=== PATIENT | female | born 1985 | race Caucasian/White ===

== ENCOUNTER 2016-10-08 00:18 | Observation (INO) | payer BC ==
[~2016-10-08] VITALS: Ht 170.2 cm; Wt 121.0 kg
[~2016-10-08 00:18] MED LIST: ACET-2321 PO; ACYC800T PO; BENZ100C97 PO; CIPR-280 PO; CODE118S2 PO; ETHI1TAB16; FLUT16SP EA NOSTRIL; IBUP-1547 PO; PRED50TA PO
--- OUTSIDE RECORDS SUMMARY | 2016-10-08 00:23 | XMS REPORT | Continuity of Care Document ---
Author Author [facility] Organization [facility] Address Unknown Phone Unavailable Care Team Providers Care Budget Counselor Name Role Phone JAMAICA PERSAUD APRN Primary Care Physician [phone] Insurance Providers Guarantor Lindsey Parr Address [address] [place] [address] [address] Email [email or web address] Other Policy Number [id number] Subscriber's Name Lindsey Parr Relationship 18 Self Group Number [id number] Effective Date 16 Expiration Date 16 Chief Complaint and Reason for Visit Chief Complaint Throat Pain/Injury Reason for Visit Upper respiratory infection with cough and congestion [id number] Pharyngitis Problems Active Problems Medical Problem Onset Date Status Group B Streptococcus carrier, delivered, current hospitalization Unknown Status post normal vaginal delivery Unknown Past Problems Medical Problem Onset Date Maxillary sinusitis, acute Unknown Pharyngitis Unknown UTI (urinary tract infection) Unknown Upper respiratory infection with cough and congestion Unknown Medications Current Home Medications Medication Dose Units Route Directions Days Qty Instructions Start Date Acetaminophen (Tylenol) 325 Mg Tablet 1 Tab Oral Every 4 Hours Prn 30 Tablet 08/13/16 Acyclovir 800 Mg Tablet 1 Tab Oral Daily 10/27/15 Benzonatate (Tessalon Perle) 100 Mg Capsule 100 Mg Oral Every 8 Hours for Cough 14 Days [address] Reji Campos Asset Protection Specialist [facility] [address] [facility] [phone] 09/04/16 Ciprofloxacin Hcl 500 Mg Tablet 500 Mg Oral Twice A Day 7 Days [address] Reji Campos Asset Protection Specialist [facility] [address] [place] [address] 09/04/16 Ethinyl Estradiol/Drospirenone (Gianvi 3 Mg-0.02 Mg Tablet) 1 Each Tablet 08/13/16 Fluticasone Propionate (Fluticasone Prop 50 Mcg/Actuation Nasal [place]) 120 [place]/16 G [place] 2 [place] Each Nostril Daily 21 Days [address] Reji Campos Asset Protection Specialist [facility] [address] [place] [address] 09/04/16 Ibuprofen 800 Mg Tablet 800 Mg Oral Every 8 Hours Prn for Pain 7 Days [address] Reji Campos Asset Protection Specialist [facility] [address] [place] [address] 09/04/16 Prednisone 50 Mg Tablet 50 Mg Oral Give With Breakfast 5 Days 5 Tablet Take 1 tablet, by mouth, once a day with breakfast. Supervising physician Dr. Reji Campos Asset Protection Specialist [facility] [address] [place] [address] 09/04/16 Promethazine Hcl/Codeine (Promethazine-Codeine Syrup) 118 Ml Syrup 5 Ml Oral Every Night Prn as needed for Cough 10 Days [address] Reji Campos Asset Protection Specialist [facility] [address] [place] [address] 09/04/16 Past Home Medications Medication Directions Ordered Status Ethinyl Estradiol/Drospirenone ([place] 28 Tablet) 1 Tab Tablet, 1 Tab Oral Daily 07/25/14 Discontinued Hydrocodone/Acetaminophen ([place] 5-325 Tablet) 1 Each Tablet, 1-2 Tab Oral Every 6 Hours as needed for Pain 07/25/14 Discontinued Hydrocodone/Acetaminophen ([place] 5-325 Tablet) 1 Each Tablet, 1-2 Tab Oral Every 4 Hours as needed for Pain 07/26/14 Discontinued Ondansetron Hcl (Zofran) 4 Mg Tablet, 4 Mg Oral Every 6 Hours for Nausea 08/07 Discontinued Social History Social History Problem Response Recorded Date/Time Onset Date Status Hx Substance Use No 11/18/2015 2:33am Not Applicable Not Applicable Hx Alcohol Use No 11/18/2015 1:43am Not Applicable Not Applicable Has the pt used tobacco in the last 12 months No 11/18/2015 2:33am Not Applicable Not Applicable Hospital Discharge Instructions No hospital discharge instructions. Plan of Care Discharge Date 09/04/16 10:54am Disposition 01 DISCHARGED HOME, SELF-CARE Condition at Discharge Stable Instructions/Education Provided Urinary Tract Infection in Women (DC) Pharyngitis (ED) Upper Respiratory Infection (ED) Forms Provided [employer] Work/School Permit Prescriptions See Medication Section Referrals JAMAICA PERSAUD APRN Address: [address] [place] [address] DELTA ESCOTO MD Address: [address] [place], [place] [phone] Additional Instructions/Education Take Cipro as directed. Use prednisone daily as directed. Use fluticasone nasal spray for 3 weeks. Use ibuprofen as needed. Take promethazine with codeine cough syrup at nighttime as needed. Use Tessalon Perles during daytime for cough as needed. Follow with primary care if symptoms are not improving. Functional Status No functional status results. Allergies, Adverse Reactions, Alerts Allergen Type Severity Reaction Status Last Updated Penicillin Allergy Unknown HIVES, ITCHING Active 09/04/16 Immunizations Query Response on File Recorded Date/Time Hx Influenza Vaccination Y 06/201407/25/14 10:16am Hx Pneumococcal Vaccination No 07/25/14 10:16am Hx Influenza Vaccination Y 06/201407/25/14 10:16am Influenza Vaccine Hx NO 09/04/16 10:15am Tetanus Diptheria Vaccine History UP TO DATE 09/04/16 10:15am Tdap Vaccine Hx Yes 10/27/15 8:28am Vital Signs Acute Vital Signs Vital Response Date/Time Temperature (Fahrenheit) 97.5 deg F (96.8 - 99.1) 09/04/2016 10:08am Temperature (Calculated Celsius) 36.96240 degrees C (36.0 - 37.3) 09/04/2016 10:08am Pulse Rate (adult) 87 bpm (60 - 100) 09/04/2016 10:08am Respiratory Rate 16 breaths/min (10 - 20) 09/04/2016 10:08am O2 Sat by Pulse Oximetry 94 % (90 - 100) 09/04/2016 10:08am Blood Pressure 128/78 mm Hg 09/04/2016 10:08am Height (Inches) 67.50 inches 09/04/2016 10:08am Weight (Kilograms) 119.300 kg 09/04/2016 10:08am Body Mass Index (BMI) 40.0 09/04/2016 10:08am Results Laboratory Results Test Name Result Units Flags Reference Collection Date/Time Result Date/ Time Comments Group A Streptococcus Screen NEGATIVE NEGATIVE 09/04/2016 10:30am 10:41am Urine Collection Type CLEANCATCH-MIDSTREAM 09/04/2016 10:30am 09/04 10:41am Urine Color YELLOW YELLOW 09/04/2016 10:30am 09/04/2016 10:41am Urine Turbidity SLT CLDY CLEAR 09/04/2016 10:30am 09/04/2016 10:41am Urine Specific [place] 1.010 L 1.015-1.025 09/04/2016 10:30am 2016 10:41am Urine pH 8.0 5.0-8.0 09/04/2016 10:30am 09/04/2016 10:41am Urine Leukocyte Esterase 2+ A NEGATIVE 09/04/2016 10:30am 09/04/2016 10:41am Urine Nitrite NEGATIVE NEGATIVE 09/04/2016 10:30am 09/04/2016 10: 41am Urine Protein NEGATIVE NEGATIVE 09/04/2016 10:30am 09/04/2016 10: 41am Urine Glucose (UA) NEGATIVE NEGATIVE 09/04/2016 10:30am 09/04/2016 10 :41am Urine Ketones NEGATIVE NEGATIVE 09/04/2016 10:30am 09/04/2016 10: 41am Urine Urobilinogen NORMAL EU/DL NORMAL 09/04/2016 10:30am 09/04/2016 10 :41am Urine Bilirubin 1+ A NEGATIVE 09/04/2016 10:30am 09/04/2016 10:41am Urine Blood 1+ A NEGATIVE 09/04/2016 10:30am 09/04/2016 10:41am Procedures No known history of procedures. Encounters Encounter Location Arrival/Admit Date Discharge/Depart Date Attending Provider Departed Emergency Room [facility] 09/04/16 10:01am 09/04/16 10: 54am CLAUDINE PHAN APRN Departed Emergency Room [facility] 08/13/16 10:00am 08/13/16 10: 38am MARY GOTTLIEB APRN Recent Diagnosis
--- NOTE | 2016-10-08 00:55 | NUR ---
LAB LAB IN TO DRAW.
--- NOTE | 2016-10-08 01:11 | NUR ---
PROVIDER DR JOAQUIN AT BEDSIDE AT THIS TIME.
[2016-10-08] MEDS ORDERED: NORMAL SALINE 1,000 ML IV ONE (01:15)
[2016-10-08] MEDS ORDERED: MORPHINE SULFATE 4 MG SYRINGE IV ONE (01:15)
[2016-10-08] MEDS ORDERED: ONDANSETRON 4mg/2ml INJECTION IV ONE ×2 (01:15→02:30)
[2016-10-08 01:19] LABS: BASOPHILS % (AUTO) 0.3 % (0-2); EOSINOPHILS % (AUTO) 0.1 % (0-4); HCT - HEMATOCRIT 40.1 % (36-46); IMMATURE GRANULOCYTE # (AUTO) 0.02 T/MM3 (0.00-0.03); IMMATURE GRANULOCYTE % (AUTO) 0.2 % (0.0-0.5); LYMPHOCYTES # (AUTO) 1.6 T/MM3 (1-4.8); LYMPHOCYTES % (AUTO) 16.6 % (23-45); MEAN CORPUSCULAR HGB 32.8 UUG (26-34); MEAN CORPUSCULAR HGB CONC(MCHC 34.9 GM/DL (31-37); MEAN CORPUSCULAR VOLUME 93.9 UM3 (80-100); MEAN PLATELET VOLUME 10.1 UM3 (9.4-12.4); MONOCYTES # (AUTO) 0.4 T/MM3 (0-0.8); MONOCYTES % (AUTO) 4.1 % (0-9.0); NEUTROPHILS #(AUTO)-ABSOLUTE 7.5 T/MM3 (1.8-7.7); NEUTROPHILS % (AUTO) 78.7 % (33-66); RED BLOOD COUNT 4.27 M/MM3 (4.00-5.20); WBC - WHITE BLOOD COUNT 9.6 T/MM3 (4.5-11.0)
[2016-10-08 01:24] LABS: ALBUMIN/GLOBULIN RATIO 1.1 RATIO (1.1-2.2); ALKALINE PHOSPHATASE 72 U/L (38-126); ALT (SGPT) 26 U/L (9-52); ANION GAP 16 MEQ/L (5-15); AST (SGOT) 19 U/L (14-36); BUN/CREATININE RATIO 23 RATIO (6-26); CALCIUM 9.1 MG/DL (8.4-10.2); CHLORIDE 101 MEQ/L (98-107); CO2 - CARBON DIOXIDE 20 MEQ/L (22-30); CREATININE 0.6 MG/DL (0.7-1.2); GLOMERULAR FILTRATION RATE 117; GLUCOSE 125 MG/DL (65-110); LIPASE 159 U/L (23-300); POTASSIUM 4.2 MEQ/L (3.6-5); SODIUM 137 MEQ/L (134-144); TOTAL PROTEIN 7.5 G/DL (6.3-8.2)
[2016-10-08 01:34] LABS: BLOOD, URINE NEGATIVE (NEGATIVE); COLOR,URINE YELLOW (YELLOW); LEUKOCYTE ESTERASE ,URINE NEGATIVE (NEGATIVE); NITRITE,URINE NEGATIVE (NEGATIVE); UROBILINOGEN,URINE 0.2 EU/DL (NORMAL)
--- NOTE | 2016-10-08 02:36 | NUR ---
RADIOLOGY PT LEAVES WITH IMAGING STAFF AT THIS TIME.
--- NOTE | 2016-10-08 02:51 | NUR ---
RETURN PT RETURNS AT THIS TIME.
--- NOTE | 2016-10-08 02:53 | NUR ---
BR PT AMBULATES TO BR AT THIS TIME.
--- NOTE | 2016-10-08 03:45 | NUR ---
PROVIDER DR JOAQUIN IN ROOM AT THIS TIME.
[2016-10-08] MEDS ORDERED: PROMETHAZINE 25 MG INJECTION IV PRN (04:00)
[2016-10-08] MEDS ORDERED: ONDANSETRON 4mg/2ml INJECTION IV PRN (04:00)
[2016-10-08] MEDS ORDERED: BISACODYL 10 MG SUPPOSITORY RECTALLY PRN (04:00)
[2016-10-08] MEDS ORDERED: MILK OF MAGNESIA 30 ML SUSP PO PRN (04:00)
[2016-10-08] MEDS ORDERED: MORPHINE SULFATE 2 MG SYRINGE IV PRN (04:00)
--- NOTE | 2016-10-08 04:00 | NUR ---
STATUS PT IS SLEEPING IN BED, NO S/S OF ACUTE DISTRESS NO CRYING OR VOMITTING NOTED.
--- NOTE | 2016-10-08 04:07 | HPPDOC ---
NATALIIA TOMLINSON MD 10/08/16 0406: HPI - Adult Date DATE: 10/08/16 TIME: 04:03 General Chief Complaint: abd pain Nausea and vomiting History of Present Illness 31-year-old female presents to the emergency room with intractable nausea vomiting diarrhea. She began having stomach cramps and diarrhea early in the afternoon, she had severe crampy abdominal pain across her entire abdomen associated with this. It's been constant but does wax and wane with her diarrhea symptoms. She's vomited several times nonbloody nonbilious emesis. Her nausea at this moment is quite severe. She's had some morphine Zofran and Phenergan and despite this remains significantly nauseated. Emergency room provider was concerned with the severity of her nauseous we did an EKG. It showed some anterior lateral T-wave inversion and no EKGs from the past to compare to. CT abdomen without contrast was performed that did not reveal any stones. She was on Cipro and prednisone 50 mg daily for a week about 3 weeks ago for "sinus and congestion symptoms" she denies a history of asthma she denies having anaphylaxis etc. She does have a significant surgical history of having her gallbladder out and having endometriosis surgery 2 years ago. Past Medical History Past Medical History History of endometriosis Surgical History Patient's Surgical History: exploratory laparotomy for endometriosis GB Current Medications Home Meds Active Scripts Ibuprofen (Ibuprofen) 800 Mg Tablet, 800 MG PO Q8HPRN for PAIN for 7 Days, #21 TAB [address] Reji Campos Senior Cobol Developer [facility] [address] [phone] Prov:CLAUDINE PHAN APRN 09/04/16 Fluticasone Propionate (Fluticasone Prop 50 mcg/actuation Nasal [place]) 120 [place] /16 G [place], 2 SPRAY EA NOSTRIL DAILY for 21 Days, #1 BOTTLE [address] Reji Campos Senior [employer]ol Developer [facility] [address] [phone] Prov:CLAUDINE PHAN APRN 09/04/16 Reported Medications Ethinyl Estradiol/Drospirenone (Gianvi 3 mg-0.02 mg Tablet) 1 Each Tablet 08/13/16 Acetaminophen (Tylenol) 325 Mg Tablet, 1 TAB PO Q4HPRN, #30 TAB 08/13/16 Acyclovir (Acyclovir) 800 Mg Tablet, 1 TAB PO DAILY, TAB 10/27/15 Allergies: Coded Allergies: Penicillins (Unverified Allergy, Unknown, HIVES, ITCHING, 10/08/16) Family History Family History: mom and dad are both living, Dad has diabetes mellitus type 1 Social History Smoking Status: Never smoker Does patient use chewing tobac: No Second Hand Exposure: No Substance Use Type: does not use, marijuana ( she states 1-2 tokes a week) Alcohol Intake: none Marital Status: Household Members: spouse, children ( she just had a baby 11 months ago) Review of Systems All Other Systems All Other Systems: Reviewed (remainder of 10-point ROS Neg.) Physical Exam General General Nourishment: obese, apparent age Vital Signs Vital Signs Date Time Temp Pulse Resp B/P Pulse Ox O2 Delivery O2 Flow Rate FiO2 10/08/16 01:26 24 Height (Feet): 5 Height (Inches): 67.50 Comments her affect and response to her symptoms is quite dramatic Respiratory Brief: FOUND: clear all christopher Cardiovascular (brief) Cardiac Brief: FOUND: regular rate, regular rhythm, NOT FOUND: pedal edema Abdomen (brief) Abdominal Brief: FOUND: BS normo active x4, soft, tender, NOT FOUND: distended Comments nursing exam demonstrates soft abdomen, does not appear that she has peritoneal signs though again her affect is quite dramatic as noted Neurologic RN Documented GCS Eye Opening: Verbal: Motor: Total: Psychiatric (brief) FOUND: alert Laboratory Laboratory Tests Test 10/08/16 01:03 10/08/16 01:09 White Blood Count 9.6T/MM3 Red Blood Count 4.27M/MM3 Hemoglobin 14.0GM/DL Hematocrit 40.1% Mean Corpuscular Volume 93.9UM3 Mean Corpuscular Hemoglobin 32.8UUG Mean Corpuscular Hemoglobin Concent 34.9GM/DL RDW Standard Deviation 43.6FL Platelet Count 307T/MM3 Mean Platelet Volume 10.1UM3 Immature Granulocyte % (Auto) 0.2% Neutrophils (%) (Auto) 78.7% Lymphocytes (%) (Auto) 16.6% Monocytes (%) (Auto) 4.1% Eosinophils (%) (Auto) 0.1% Basophils (%) (Auto) 0.3% Absolute Immature Granulocyte (auto 0.02T/MM3 Absolute Neutrophils (auto) 7.5T/MM3 Absolute Lymphocytes (auto) 1.6T/MM3 Absolute Monocytes (auto) 0.4T/MM3 Absolute Eosinophils (auto) 0.0T/MM3 Absolute Basophils (auto) 0.0T/MM3 Turbidity < 20 Sodium Level 137MEQ/L Potassium Level 4.2MEQ/L Chloride Level 101MEQ/L Carbon Dioxide Level 20MEQ/L Anion Gap 16MEQ/L Blood Urea Nitrogen 14.0MG/DL Creatinine 0.6MG/DL Glomerular Filtration Rate Calc 117 BUN/Creatinine Ratio 23RATIO Glucose Level 125MG/DL Calculated Osmolality 266MOSM/KG Calcium Level 9.1MG/DL Total Bilirubin 0.60MG/DL Icterus Index < 2 Aspartate Amino Transf (AST/SGOT) 19U/L Alanine Aminotransferase (ALT/SGPT) 26U/L Alkaline Phosphatase 72U/L Troponin I < 0.012ng/ml Total Protein 7.5G/DL Albumin 4.0G/DL Globulin 3.5G/DL Albumin/Globulin Ratio 1.1RATIO Lipase 159U/L Chemistry Specimen Hemolysis < 15 Urine Collection Type Cleancatch-midstream Urine Color Yellow Urine Turbidity Clear Urine pH 7.0 Urine Specific [place] 1.020 Urine Protein Trace Urine Glucose (UA) Negative Urine Ketones Trace Urine Blood Negative Urine Nitrite Negative Urine Bilirubin Negative Urine Urobilinogen 0.2EU/DL Urine Leukocyte Esterase Negative Urinalysis Comment Microscopic not ind. Urine Test Negative EKG low voltage noted, there are some inverted T waves in V2 through V5 no ST depression noted Radiology CT abdomen renal stone protocol reveals no kidney stones per discussion with emergency room physician Assessment & Plan Problems: (1) Diarrhea Status: Acute Qualifiers: Diarrhea type: presumed infectious Qualified Codes: A09 - Infectious gastroenteritis and colitis, unspecified Assessment & Plan: supportive care with antiemetics and pain medicine, with her surgical history hold off on ordering Imodium at this time but I will order a C. difficile that she was on Cipro a few weeks ago. (2) Nausea with vomiting Status: Acute Qualifiers: Vomiting Intractability: intractable Assessment & Plan: Anti-emetics as noted above supportive care and I think is in order with her relatively reassuring labs and imaging. it doesn't sound she smokes enough marijuana frequently enough to consider cannabis induced cyclic vomiting-type syndrome. (3) Abdominal pain Status: Acute Qualifiers: Abdominal location: generalized Qualified Codes: R10.84 - Generalized abdominal pain Assessment & Plan: again as noted her laboratories reassuring probably related to gastroenteritis, (4) Abnormal EKG Status: Acute Assessment & Plan: in or have any old EKGs to compare to, I think this is likely her baseline, but ruling out with serial enzymes as appropriate. We'll keep her nothing by mouth and no caffeine in case the daytime team thinks the stress test might be warranted, however with the significance of her other symptoms namely the nausea vomiting diarrhea this is more likely acute infectious gastroenteritis I would presume. Her CT scan without contrast didn' t demonstrate any obvious obstruction. She does have a significant surgical history so that is to keep in mind, Code Status Full Code Hospital Course Summary Disclaimer The hospital course summary below is not to be considered part of the above Progress Note. ESTELITA CERDA MD 10/08/16 1721: Past Medical History Current Medications Home Meds Active Scripts Ibuprofen (Ibuprofen) 800 Mg Tablet, 800 MG PO Q8HPRN for PAIN for 7 Days, #21 TAB [address] Reji Campos Senior Cobol Developer [facility] [address] [facility] [phone] Prov:CLAUDINE PHAN FINANCIAL ANALYSIS MANAGER 09/04/16 Fluticasone Propionate (Fluticasone Prop 50 mcg/actuation Nasal [place]) 120 [place] /16 G [place], 2 SPRAY EA NOSTRIL DAILY for 21 Days, #1 BOTTLE [address] Reji Campos Senior [employer]ol Developer [facility] [address] [facility] [phone] Prov:CLAUDINE PHAN FINANCIAL ANALYSIS MANAGER 09/04/16 Reported Medications Ethinyl Estradiol/Drospirenone (Gianvi 3 mg-0.02 mg Tablet) 1 Each Tablet 08/13/16 Acetaminophen (Tylenol) 325 Mg Tablet, 1 TAB PO Q4HPRN, #30 TAB 08/13/16 Acyclovir (Acyclovir) 800 Mg Tablet, 1 TAB PO DAILY, TAB 10/27/15 Allergies: Coded Allergies: Penicillins (Unverified Allergy, Unknown, HIVES, ITCHING, 4/18/17) Assessment & Plan Problems: (1) Nausea with vomiting Status: Acute Qualifiers: Vomiting Intractability: intractable Assessment & Plan: (2) Diarrhea Status: Acute Qualifiers: Diarrhea type: presumed infectious Qualified Codes: A09 - Infectious gastroenteritis and colitis, unspecified Assessment & Plan: (3) Abdominal pain Status: Acute Qualifiers: Abdominal location: generalized Qualified Codes: R10.84 - Generalized abdominal pain (4) Abnormal EKG Status: Acute (5) Morbid obesity Status: Chronic Qualifiers: Obesity type: due to excess calories Qualified Codes: E66.01 - Morbid ( severe) obesity due to excess calories Plan/Intensity of Service Have independently interviewed and examined pt. Chart reviewed. Reviewed above note and concur. CC: Ab pain, nausea and diarrhea. HPI: 31 y/o female presents to ED with above noted complaint. In typical state of health until afternoon of 10/07 when she developed diffuse ab pain and nausea. Multiple episodes of non bloody emesis. Stools also loose (does tend to have loose stools) - no blood in stool or black tarry stools. No f/c. No recent viral illness. [place] very full in chest in ED. No recent trauma. Does not use ETOH. Hx of cholecystomy. Has has similar pain in past, but never this intense or long lived. Report was to see GI for ab evaluation, but had to cancel secondary to job change. PHMx, FHx, Meds and Allergies reviewed and concur. SHx: September 09, 2016. ROS: GEN: Increased anxiousness with pain. HEENT: recent sinus congestion resolved. Vision/hearing stable. Remainder of 10 point ROS negative. Exam: GEN: [id number] A&O HEENT: NC/AT PRIMO EOMI Neck: midline, supple Lungs: clear bilaterally. No crackles, wheezes, distress CV: regular AB: Soft, Obese, ND. BS decreased. Point tender in RUQ at rib cage. No rash in this area EXT: Trace edema Neuro: CV II-XII intact. No focal deficits. Psych: awake alert appropriate SKIN: warm and dry, no rashes. Lab: reviewed Imagine: reviewed. Assessment: as above. Plan: OBS. IVF for hydration. Antiemetics as needed. IV pain medications. NPO until nausea resolves, then could advance diet. Tele. Serial enzymes. Recheck lab. This evening nausea much better. Very little appetite/desire to eat. Notes only point tenderness in ribcage of RUQ. Taking minimal sips of clear liquids. Hospital Course Summary Hospital Course Summary 10/08 OBS. IVF for hydration. Antiemetics as needed. IV pain medications. NPO until nausea resolves, then could advance diet. Tele. Serial enzymes. Recheck lab. NATALIIA TOMLINSON MD Oct 08, 2016 04:06 ESTELITA CERDA MD Oct 08, 2016 17:21 Assessment: as above. Plan: OBS. IVF for hydration. Antiemetics as needed. IV pain medications. NPO until nausea resolves, then could advance diet. Tele. Serial enzymes. Recheck lab. NATALIIA TOMLINSON MD Oct 08, 2016 04:06 ESTELITA CERDA MD Oct 08, 2016 17:21
--- NOTE | 2016-10-08 04:13 | NUR ---
REPORT GIVEN TO BRI FISHER AT THIS TIME.
--- NOTE | 2016-10-08 04:15 | ERPDOC ---
Departure Disposition Decision Date: Oct 08, 2016 Disposition Decision Time: 03:50 Disposition: 02 TO [facility] Impression Impression Impression: Primary Impression: Intractable nausea and vomiting Vomiting type: unspecified Qualified Codes: R11.2 - Nausea with vomiting, unspecified Additional Impression: Abnormal EKG Severity: Moderate Condition: Improved Seen By: Physician only Referrals: J[place]ICA PERSAUD APRN (PCP) DELTA ESCOTO MD (Family) Problems/Meds/Labs Reviewed?: Yes Medications reviewed and manag: Yes Follow up care ordered?: Yes Mental Status: Alert, Oriented HPI - General Medical General Chief Complaint: Abdominal Pain Stated Complaint: NAUSEA AND VOMITING, ABNORMAL EKG Time Seen by Provider: 00:46 Source: patient Exam Limitations: no limitations HPI - General Medical Initial Comments 31-year-old female presents to the emergency department with a chief complaint of nausea, vomiting, and diarrhea. Patient also notes right sided abdominal discomfort. She states the pain is located near the flank region. Patient denies any trauma, travel, poorly prepared foods or recent antibiotic use. Patient has had her gallbladder removed. Patient describes her pain as moderate. It is sharp. There is no radiation. Patient states that she has had "multiple episodes" of nonbloody nonbilious emesis and diarrhea. Patient denies any other complaints or associated symptoms. She does not note any exacerbating or remitting factors. She was at home when her symptoms began. Symptoms have been persistent in nature since onset. Symptoms have had a gradual progression. Occurred At: home Onset: Gradual Allergies: Coded Allergies: Penicillins (Unverified Allergy, Unknown, HIVES, ITCHING, 09/04/16) Past History Patient Surgical History GB Past Medical History Pt denies signifigant PMH Surgical History General: gallbladder Family History Family PMH: FOUND: diabetes Vaccines Hx Influenza Vaccination: Yes (06/2014) Hx Pneumococcal Vaccination: No Social History Smoking Status: Never smoker Does patient use chewing tobac: No Second Hand Exposure: No Substance Use Type: does not use Alcohol Intake: none Review of Systems Constitutional Constitutional: DENIES: chills, fever Eyes General: DENIES: erythema, exudate Lids/Accessories: DENIES: erythema, swelling Vision: DENIES: acuity, blurring ENMT Ears: DENIES: drainage, pain Hearing: DENIES: hearing loss Balance: DENIES: ataxia, falling to one side Sinuses: DENIES: congestion, pain Nose: DENIES: nosebleeds, pain Mouth/Throat: DENIES: painful swallowing, sore throat Teeth: DENIES: pain Jaw: DENIES: pain Cardiovascular Cardiac: DENIES: chest pain, dyspnea on exertion Rhythm/Rate: DENIES: irregular beat, palpitations Vascular: DENIES: pedal edema, unilateral swelling Pulmonary Respiratory: DENIES: cough, dyspnea, pleuritic chest pain, sputum GI Upper Abdomen: nausea, pain, vomiting Lower Abdomen: diarrhea, DENIES: pain General: DENIES: dysuria, frequency Musculoskeletal General: DENIES: joint pain, tenderness Integumentary Skin: DENIES: itching, rash Neurological General: DENIES: headache, numbness, weakness Psychiatric Psychiatric: DENIES: emotional instability, suicidal ideation/attempt Endocrine Endocrine: DENIES: polydipsia, polyphagia Hematologic/Lymphatic Hematologic/Lymphatic: DENIES: frequent nosebleeds, lymphadenopathy Allergic/Immunological Allergic/Immunoligical: DENIES: allergic reactions, hives Physical Exam General General Nourishment: well nourished, well developed, appears stated age, no acute distress, adult General Body Habitus: well groomed Vitals and Pain First Documented Vital Signs Date Time Temp Pulse Resp B/P Pulse Ox O2 Delivery O2 Flow Rate FiO2 10/08/16 01:00 83 98 Room Air 10/08/16 01:26 24 10/08/16 02:00 129/78 Weight: Kilograms: Height (feet): 5 Height (inches): 67.50 Triage Pain Scale: RN VS reviewed by Provider: Yes Normal Exams: Head: Normocephalic w/o trauma Eyes: Pupils are PERRLA w/ EOMI, No scleral icterus, irritation, or foreign bodies noted ENMT: No facial trauma, nasal exudates, pharyngeal erythema, or exudates are noted Dental: No fractured, loose, or missing teeth noted Neck: Full range of motion, without adenopathy, JVD, bruits or thyromegaly Chest/Resp: Clear all christopher, with good airflow, and symmetry bilaterally CV: Regular rate and rhythm, without murmur or gallop, Pulses 2+ all extremities, capillary refill, <2 seconds all ext., no pedal edema noted Abdomen: Bowel sounds positive, soft, non-tender, non-distended, no hepatosplenomegaly, masses or bruits noted Lymphatic: No lymphadenopathy, or lymphedema noted Musculoskeletal: No tenderness, or deformity noted, good range of motion, all extremities Integumentary: No rashes, hives, or bruising noted, hair and nails, without abnormality Neurologic: Patient is alert, and oriented, cranial nerves, motor/sensory/ cerebellar, exams w/o gross deficits, to observation Psychiatric: Patient exhibits, appropriate attention, emotion and affect Abdomen (brief) Comments NO CVAT. Differential Diagnoses Considering: Metabolic, UTI, Other (Renal Stone/Gastroenteritis) Progress Results/Orders Orders Procedure Category Date Status Time Cbc W/Auto LAB 10/08/16 Complete Diff-Reflex Manual Cmp - Comprehensive LAB 10/08/16 Complete Metabolic Lipase LAB 10/08/16 Complete Ua, Dip Wreflex LAB 10/08/16 Complete Microsc & Network Support Engineer 00:46 LAB 10/08/16 Complete Qualitative, Urine 00:46 Normal Saline (Normal PHA 10/08/16 Complete Saline Iv) 01:15 Morphine Sulfate PHA 10/08/16 Complete (Morphine) 01:15 Ondansetron Inj PHA 10/08/16 Complete (Zofran) 01:15 EKG EKG 10/08/16 Taken Ondansetron Inj PHA 10/08/16 Complete (Zofran) 02:30 Troponin I W LAB 10/08/[address] Renal W/O Contrast CT 10/08/16 Taken 01:14 Lab Results Laboratory Tests Test 10/08/16 01:03 10/08/16 01:09 White Blood Count 9.6T/MM3 Red Blood Count 4.27M/MM3 Hemoglobin 14.0GM/DL Hematocrit 40.1% Mean Corpuscular Volume 93.9UM3 Mean Corpuscular Hemoglobin 32.8UUG Mean Corpuscular Hemoglobin Concent 34.9GM/DL RDW Standard Deviation 43.6FL Platelet Count 307T/MM3 Mean Platelet Volume 10.1UM3 Immature Granulocyte % (Auto) 0.2% Neutrophils (%) (Auto) 78.7% Lymphocytes (%) (Auto) 16.6% Monocytes (%) (Auto) 4.1% Eosinophils (%) (Auto) 0.1% Basophils (%) (Auto) 0.3% Absolute Immature Granulocyte (auto 0.02T/MM3 Absolute Neutrophils (auto) 7.5T/MM3 Absolute Lymphocytes (auto) 1.6T/MM3 Absolute Monocytes (auto) 0.4T/MM3 Absolute Eosinophils (auto) 0.0T/MM3 Absolute Basophils (auto) 0.0T/MM3 Turbidity < 20 Sodium Level 137MEQ/L Potassium Level 4.2MEQ/L Chloride Level 101MEQ/L Carbon Dioxide Level 20MEQ/L Anion Gap 16MEQ/L Blood Urea Nitrogen 14.0MG/DL Creatinine 0.6MG/DL Glomerular Filtration Rate Calc 117 BUN/Creatinine Ratio 23RATIO Glucose Level 125MG/DL Calculated Osmolality 266MOSM/KG Calcium Level 9.1MG/DL Total Bilirubin 0.60MG/DL Icterus Index < 2 Aspartate Amino Transf (AST/SGOT) 19U/L Alanine Aminotransferase (ALT/SGPT) 26U/L Alkaline Phosphatase 72U/L Troponin I < 0.012ng/ml Total Protein 7.5G/DL Albumin 4.0G/DL Globulin 3.5G/DL Albumin/Globulin Ratio 1.1RATIO Lipase 159U/L Chemistry Specimen Hemolysis < 15 Urine Collection Type Cleancatch-midstream Urine Color Yellow Urine Turbidity Clear Urine pH 7.0 Urine Specific Norden 1.020 Urine Protein Trace Urine Glucose (UA) Negative Urine Ketones Trace Urine Blood Negative Urine Nitrite Negative Urine Bilirubin Negative Urine Urobilinogen 0.2EU/DL Urine Leukocyte Esterase Negative Urinalysis Comment Microscopic not ind. Urine Test Negative Medications Current ED Medications Sodium Chloride (Normal Saline IV) 1,000 ml @ 999 mls/hr Q1H1M ONCE IV Last administered on 10/08/16 01:25; Start 10/08/16 at 01:15; Stop 10/08/16 at 02:15 ; Status DC Morphine Sulfate (Morphine) 4 mg O ONCE IV Last administered on 10/08/16 01: 26; Start 10/08/16 at 01:15; Stop 10/08/16 at 01:16; Status DC Ondansetron HCl (Zofran) 4 mg O ONCE IV Last administered on 10/08/16 01:25; Start 10/08/16 at 01:15; Stop 10/08/16 at 01:16; Status DC Ondansetron HCl (Zofran) 4 mg O ONCE IV Last administered on 10/08/16 02:23; Start 10/08/16 at 02:30; Stop 10/08/16 at 02:31; Status DC Progress Progress Labs / imaging were discussed in detail with the patient and family and questions are answered. Patient is given IV hydration. She is given parental narcotic and antiemetic medications intravenously with improvement of symptoms. Patient CT scan of the abdomen and pelvis is unremarkable. Patient does have T-wave changes in V2, V3, and V4 on her EKG. Patient will be admitted to the service of the hospitalist for observation status secondary to this. I have no EKG for comparison. Patient is in agreement with the current plan of management. She is admitted to the hospital in improved condition. Patient is admitted to the service of Dr. Graham after discussion with Dr. Montiel. No further orders from accepting or consulting physicians. Temp: 37.0 C. EKG EKG : Rate: 60-100 Rhythm: sinus Warbranch: normal QRS: normal Intervals: normal ST/T: inverted (V2-V4. No comparison ekg. ) Interpreted by: signing physician CT CT : CT: Abd/Pelvis no contrast Interpretation: Normal, Faxed Report PA JOAQUIN DO Oct 08, 2016 04:15
--- NOTE | 2016-10-08 04:40 | NUR ---
TRANSPORT PT IS TRANSPORTED VIA CART TO MEDICAL UNIT ROOM 153 AT THIS TIME. PT HAS ONE EPISODE OF LOUD WRETCHING WHICH PRODUCES 50-100 ML OF EMESIS. BRI FISHER PRESENT ON ARRIVAL, CARE IS PASSED.
[2016-10-08] MEDS: NORMAL SALINE 1,000 ML IV SCH ×2 (05:09→15:06)
[2016-10-08 05:40] VITALS: Ht 170.2 cm; Wt 121.0 kg
[2016-10-08] MEDS ORDERED: LORAZEPAM 2 MG/ML INJECTION IV PRN (05:45)
[2016-10-08 06:05] VITALS: BP 151/100; PULSE 71; RESP 16; TEMP 97.7; O2SAT 100
--- NOTE | 2016-10-08 06:21 | NUR ---
Admit Admit to room 153 @0440, c/o severe nausea and abdominal pain. Emesis x1, small amount. Pt resting after ativan was given per order. Educated offset second press operator light, room, and c-diff precautions. Resting with HOB up, alarms in place.
[2016-10-08 07:28] VITALS: BP 141/93; PULSE 72; RESP 16; TEMP 98.9; O2SAT 98
--- NOTE | 2016-10-08 08:03 | DI ---
Indication: ITS.REASON: R flank pain PROCEDURE: CT RENAL W/O CONTRAST: Encounter: Initial Comparison: None Technique: Axial CT images were performed through the abdomen and pelvis without intravenous contrast. Coronal and sagittal two-dimensional reformats. Automated Exposure Control and Iterative Reconstruction dose reducing techniques were utilized. Findings: The lung bases are clear. The unenhanced liver is unremarkable. Gallbladder is surgically absent. The spleen, pancreas and adrenal glands are within normal limits. The kidneys appear normal. No renal or ureteral stones. Bladder is normal. Uterus and ovaries are normal. No free fluid. No evidence of a bowel obstruction. The appendix is normal. Bone windows show no acute findings. Impression: No acute disease process seen. There is a preliminary report by [email or web address]. .
[2016-10-08 08:10] VITALS: PULSE 60; RESP 16
[2016-10-08] MEDS: SENNA + DOCUSATE TAB PO SCH ×2 (08:34→20:09)
[2016-10-08] MEDS: METOCLOPRAMIDE 10mg/2ml INJECTION IV PRN ×2 (08:47→20:09)
--- NOTE | 2016-10-08 09:17 | NUR ---
CM IN TO VISIT PATIENT, SHE IS SLEEPING. MALE IN ROOM SLEEPING, WOKE UP AND DENIED DISCHARGE NEEDS. CM CONTACT INFORMATION LEFT, EXPLAINED IF PATIENT NEEDS SERVICES TO CALL. Addendum: 10/08/16 at 0918 by LEIGH ANN ORTEGA RN Amended: Links added.
--- NOTE | 2016-10-08 09:20 | NUR ---
CM LACE SCORE IS 2, NO FURTHER FOLLOW UP IS NEEDED.
[2016-10-08 12:04] VITALS: BP 152/99; PULSE 78; RESP 18; TEMP 98; O2SAT 96
[2016-10-08] MEDS ORDERED: ACETAMINOPHEN 325 MG TABLET PO PRN (14:00)
[2016-10-08 15:03] VITALS: BP 121/70; PULSE 74; RESP 18; TEMP 98.6; O2SAT 96
--- NOTE | 2016-10-08 17:49 | NUR ---
STATUS pt is alert and oriented X3. pt has had some pain and was given prn pain meds as charted. pt gets up ad snehal. pt is on room air. is present. pt is resting in bed. call light within reach.
[2016-10-08 20:00] VITALS: BP 138/97; PULSE 74; RESP 16; RESP 20; TEMP 97.6; O2SAT 96
--- NOTE | 2016-10-08 21:00 | NUR ---
shower Pt had shower with assist from family. Back in bed and resting now.
[2016-10-09] MEDS: NORMAL SALINE 1,000 ML IV SCH (03:11)
[2016-10-09 03:15] VITALS: BP 135/83; PULSE 72; RESP 16; O2SAT 99
[2016-10-09 06:09] LABS: BASOPHILS % (AUTO) 0.6 % (0-2); EOSINOPHILS % (AUTO) 0.5 % (0-4); HCT - HEMATOCRIT 37.7 % (36-46); HGB - HEMOGLOBIN 12.9 GM/DL (12-16); IMMATURE GRANULOCYTE # (AUTO) 0.01 T/MM3 (0.00-0.03); IMMATURE GRANULOCYTE % (AUTO) 0.2 % (0.0-0.5); LYMPHOCYTES % (AUTO) 46.2 % (23-45); MEAN CORPUSCULAR HGB 32.6 UUG (26-34); MEAN CORPUSCULAR HGB CONC(MCHC 34.2 GM/DL (31-37); MEAN CORPUSCULAR VOLUME 95.2 UM3 (80-100); MEAN PLATELET VOLUME 10.1 UM3 (9.4-12.4); MONOCYTES # (AUTO) 0.9 T/MM3 (0-0.8); NEUTROPHILS #(AUTO)-ABSOLUTE 2.6 T/MM3 (1.8-7.7); NEUTROPHILS % (AUTO) 39.5 % (33-66); RED BLOOD COUNT 3.96 M/MM3 (4.00-5.20); WBC - WHITE BLOOD COUNT 6.5 T/MM3 (4.5-11.0)
[2016-10-09 06:22] LABS: ANION GAP 10 MEQ/L (5-15); BUN/CREATININE RATIO 17 RATIO (6-26); CHLORIDE 110 MEQ/L (98-107); CO2 - CARBON DIOXIDE 24 MEQ/L (22-30); CREATININE 0.6 MG/DL (0.7-1.2); GLOMERULAR FILTRATION RATE 117; GLUCOSE 85 MG/DL (65-110); POTASSIUM 3.5 MEQ/L (3.6-5); SODIUM 144 MEQ/L (134-144)
--- NOTE | 2016-10-09 06:52 | NUR ---
Status Slept all night, no c/o N/V or pain. No stool for c-diff sample this shift.
[2016-10-09 08:10] VITALS: PULSE 76; RESP 16
[2016-10-09] MEDS: SENNA + DOCUSATE TAB PO SCH (08:10)
[2016-10-09 08:12] VITALS: BP 125/82; PULSE 76; RESP 18; TEMP 97.1; O2SAT 95
--- NOTE | 2016-10-09 09:31 | PNPDOC ---
Subjective Date DATE: 10/09/16 TIME: 09:25 Subjective F/U: N/V/D, ab pain Doing better today. Some nausea last night. Slept better. Ab pain resolved- notes discomfort to RUQ with movements/palpation. NO stools. Urinating well. Breathing well. No chest pain. No f/c. Objective Vital Signs Vital signs Vital Signs Date Time Temp Pulse Resp B/P Pulse Ox O2 Delivery O2 Flow Rate FiO2 10/09/16 08:12 97.1 76 18 125/82 95 Room Air Height (Feet): 5 Height (Inches): 7.00 Weight (Kilograms): 121.000 General General Appearance: Alert, Obese, Orientated x 3, Well Nourished, Well Developed, Cooperative, Looks Stated Age Eyes (Brief) Eyes: FOUND: EOMI, PERRL, NOT FOUND: scleral icterus ENMT (Brief) ENMT: FOUND: hearing intact, mucosa moist Neck (Brief) Neck: FOUND: midline, NOT FOUND: nuchal rigidity, spasm Respiratory (Brief) Respiratory: FOUND: clear all christopher, equal bilaterally, NOT FOUND: rales, wheezes Cardiovascular (Brief) Cardiac: FOUND: regular rate, regular rhythm, NOT FOUND: pedal edema Abdomen (Brief) Abdominal: FOUND: BS normo active x4, soft, NOT FOUND: distended Extremities (Brief) Extremity : Side: Bilateral Extremity: leg Extremity Finding: NOT FOUND: edema, warm Musculoskeletal (Brief) Musculoskeletal: FOUND: extremities move equally, NOT FOUND: deformity, loss of motion, spasm, tenderness Integumentary (Brief) Integumentary: FOUND: dry, warm, NOT FOUND: rash Neurologic (Brief) Neurological: FOUND: cranial 2-12 intact, motor (Intact ) Psychiatric (Brief) Psychiatric: FOUND: alert, attentive, normal affect, oriented Laboratory Laboratory Laboratory Tests 10/08/16 01:03 10/09/16 05:43 Laboratory Tests 10/08/16 01:03 10/09/16 05:43 Assessment & Plan Problems: (1) Nausea with vomiting Status: Resolved Qualifiers: Vomiting Intractability: intractable Assessment & Plan: (2) Diarrhea Status: Resolved Qualifiers: Diarrhea type: presumed infectious Qualified Codes: A09 - Infectious gastroenteritis and colitis, unspecified Assessment & Plan: (3) Abdominal pain Status: Resolved Qualifiers: Abdominal location: generalized Qualified Codes: R10.84 - Generalized abdominal pain (4) Abnormal EKG Status: Acute (5) Morbid obesity Status: Chronic Qualifiers: Obesity type: due to excess calories Qualified Codes: E66.01 - Morbid ( severe) obesity due to excess calories Plan/Intensity of Service Advance diet as tolerated-advised caution with oral intake. Encourage ambulation. Will give 20mEq KCl with lunch. Discussed symptoms with pt - do feel outpatient GI evaluation would be prudent. Anticipate discharge to home this afternoon. Code Status Full Code Hospital Course Summary Disclaimer The hospital course summary below is not to be considered part of the above Progress Note. Hospital Course Summary 10/08 OBS. IVF for hydration. Antiemetics as needed. IV pain medications. NPO until nausea resolves, then could advance diet. Tele. Serial enzymes. Recheck lab. This evening nausea much better. Very little appetite/desire to eat. Notes only point tenderness in ribcage of RUQ. Taking minimal sips of clear liquids. 10/09 Doing better today. Some nausea last night. Slept better. Ab pain resolved- notes discomfort to RUQ with movements/palpation. NO stools. Urinating well. Breathing well. No chest pain. No f/c. Stool studies not done as pt has not produced stool. Advance diet as tolerated-advised caution with oral intake. Encourage ambulation. Will give 20mEq KCl with lunch. Discussed symptoms with pt - do feel outpatient GI evaluation would be prudent. Anticipate discharge to home this afternoon. ESTELITA CERDA MD Oct 09, 2016 09:30
[2016-10-09 12:28] VITALS: BP 130/91; PULSE 64; RESP 18; TEMP 96.8; O2SAT 98
[2016-10-09] MEDS ORDERED: POTASSIUM CHLORIDE 20 MEQ TABLET PO ONE (12:30)
[2016-10-09] MEDS ORDERED: PROM12.510 PO (13:48)
--- NOTE | 2016-10-09 15:11 | NUR ---
CM CM IN TO VISIT WITH PT. CM EXPLAINED ROLE. CM PROVIDED CONTACT INFORMATION. PT DENIES HOME NEEDS AND IS AWARE TO CALL SHOULD NEEDS ARISE.
--- NOTE | 2016-10-09 15:33 | NUR ---
DISMISSAL pt has been dismissed to home. all dismissal paperwork has been reviewed with the pt and a copy was sent home. prescription was sent with the pt. all personal belongings were sent with the pt. IV was DC'd. pt left with her .
[2016-10-09] MEDS ORDERED: ONDA4TAB7 PO (22:20)
--- NOTE | 2016-10-10 14:44 | DSF ---
Date of the initiation of observation 10/08/2016. Date of discharge 10/09/2016. ADMISSION DIAGNOSIS Nausea and vomiting. DISCHARGE DIAGNOSIS Nausea, vomiting - resolved. ASSOCIATED CONDITIONS AND COMPLICATIONS Diarrhea - resolved. Abdominal pain - improved. Abnormal EKG. Morbid obesity with BMI 41.8. PROCEDURES None. CONSULTS None. CLINICAL RESUME Lindsey Alejandra is a 31-year-old female who presents to [facility] Emergency Room secondary abdominal pain, nausea, vomiting. She start having abdominal cramps and diarrhea early in the afternoon of the . She developed severe crampy pain across her entire abdomen associated with this. Pain is constant but does wax and wane with her diarrhea symptoms. She has vomited several times, nonbloody and nonbilious emesis. Her nausea gets quite severe. With her symptoms worsening, she presented to emergency room for evaluation. Despite Zofran and Phenergan, she still had significant nausea. She has history of cholecystectomy out many, many years ago and also endometriosis surgery two years ago. She was exposed to Cipro and prednisone about three weeks ago for sinus symptoms. In emergency room she was evaluated. White count is normal at 9.6. Electrolytes are unremarkable other than CO2 slightly decreased at 20 and anion gap elevated at 16. Troponin was undetectable. UA showed trace protein, trace ketone. She underwent renal CT which showed no acute disease process. In light of her persistent nausea , vomiting, abdominal pain, hospitalist service was contacted and patient was subsequently placed in outpatient observation status at [facility] for further evaluation and treatment. For complete details of the H&P, refer to that document. LABORATORY White blood count is 9.6 with hemoglobin 14.0, hematocrit 40.1, MCV 93.9 and platelets 307,000. 78.7% neutrophils are noted. Serum sodium is 137, potassium 4.2, chloride 101, CO2 20, BUN 14, creatinine 0.6, GFR 117 and blood glucose 125. Transaminases unremarkable. Troponin I is less than 0.012. Lipase is 159. UA reveals trace protein, trace glucose. Stool for fecal leukocytes is negative. Stool PCR panel is completely unremarkable. HOSPITAL COURSE The patient was placed in outpatient observation status at [facility] under the care of the hospitalist service. She was initially made n.p.o. for bowel rest. IV fluids were initiated for hydration. We had Zofran, Phenergan and Reglan available as needed to help with nausea. Morphine was made available as needed for pain, but she did not require morphine for pain control after she left the emergency room. We did make Tylenol available as needed. Ativan was made available as needed for anxiety. Lab was monitored. Overall on day of presentation she spent most of the day sleeping (presented to emergency room early in morning of the 18th and very, very tired throughout the day). Fortunately, her nausea and abdominal pain were defervescing. We did advance diet to clear liquids, advising patient on caution with oral intake. She was no longer having diarrhea. IV fluids were continued. The next day met with continued success. The patient was able to tolerate liquids without abnormality. White count was still normal. Pain was defervescing. We were able to obtain stool sample which showed no significant pathogens. It is uncertain exactly what the cause of her symptoms was. It sound as if she has been having these abdominal symptoms for quite some time and is in the process of having further GI evaluation. Initially there was thought of possible viral pathogen which could indeed be the case although stool PCR was negative for what was tested for at [facility]. We did advise increasing diet as she is able. Encouraged her on bland foods. We discussed about plenty of fluid hydration. As her symptoms had improved. she was able to be discharged to home. Narrative disclaimer: Above narrative is a brief summary of the patient's hospitalization; for complete details of the hospital course, refer to the medical record. DISCHARGE CONDITION Stable/good. DIET Duc[place]ne diet, increase as tolerated; plenty of fluids and liquids. ACTIVITIES As tolerated. MEDICATIONS Phenergan 12.5 mg p.o. q.6h. p.r.n. nausea. Tylenol 325 mg q.4h. p.r.n. pain. Acyclovir 800 mg daily. Gianvi 3/0.02 daily. Fluticasone two sprays each nostril daily. May stop ibuprofen. FOLLOWUP The patient will follow with [facility] in one week, calling or returning sooner as problems or need indicate. INSTRUCTION TO PATIENT The patient was instructed on her diagnosis and treatments provided. We discussed about plenty of fluid and liquid intake. Encouraged her on increasing her strength and functional abilities. She may use Tylenol as needed for pain symptoms and Phenergan as needed for nausea. Should problems or need occur she could be in contact with [facility]. If symptoms become quite dire she can present to emergency room for acute evaluation. She voiced understanding of the above. Time spent with discharge greater than 30 minutes. ESTEFANÍA
== END 2016-10-09 15:33 | disposition home or self-care (01) ==
LOC: ED 00:18 → EDHOLD 03:56 → MED 04:40
PROVIDERS: ADMIT Pediatrics; ATTEND Hospitalist
DX: R19.7 Diarrhea, unspecified (principal); R11.2 Nausea with vomiting, unspecified; R10.84 Generalized abdominal pain; R94.31 Abnormal electrocardiogram [ECG] [EKG]; Z90.49 Acquired absence of other specified parts of digestive tract; E66.01 Morbid (severe) obesity due to excess calories; Z68.41 Body mass index [BMI] 40.0-44.9, adult
CPT/HCPCS: 36415; 74176; 80048; 80053; 81003; 81025; 83690; 84484; 85025; 87507; 89055; 93005; 96361; 96374; 96375; 96376; 99218; 99284; J2060; J2405; J2550; J2765; J7030

== ENCOUNTER 2016-10-09 19:50 | Emergency (ER) | payer BC ==
[~2016-10-09] VITALS: Ht 170.2 cm; Wt 120.0 kg
[~2016-10-09 19:50] MED LIST changes: -BENZ100C97 PO; -CIPR-280 PO; -CODE118S2 PO; -PRED50TA PO; +PROM12.510 PO
[2016-10-09 19:55] VITALS: TEMP 98.3; Ht 170.2 cm; Wt 120.0 kg
[2016-10-09] MEDS ORDERED: NORMAL SALINE 1,000 ML IV ONE (20:05)
--- NOTE | 2016-10-09 20:05 | ERPDOC ---
Departure Disposition Decision Date: Oct 09, 2016 Disposition Decision Time: 22:05 Disposition: 01 DISCHARGED HOME, SELF-CARE Impression Impression Impression: Primary Impression: Abdominal pain Additional Impressions: Nausea with vomiting Cyclic vomiting syndrome Condition: Stable Seen By: Mid-level only Referrals: [place] PERSAUD APRN (PCP) follow up in 2 days unless improving. Recommend follow up with a tool and production planner for evaluation of your abdominal pain. Patient Instructions: Abdominal Pain (ED), Acute Nausea and Vomiting (ED) Problems/Meds/Labs Reviewed?: Yes Medications reviewed and manag: Yes Follow up care ordered?: Yes Mental Status: Alert, Oriented Scripts Ondansetron (Zofran Odt) 4 Mg Tab.rapdis 4 MG PO Q6HR for NAUSEA, #10 TAB Oral disintegrating tablet Prov: SINTIA DINH APRN 10/09/16 HPI - Abdominal Pain General Stated Complaint: SEVERE ABD PAIN Time Seen by Provider: 20:05 Source: patient History/Exam Limitations: no limitations HPI - Abdominal Pain Initial Comments patient presents with complaints of severe abdominal pain. Patient was admitted on October 08 and was dismissed today around 1530 for the same complaints. Lab work was done in addition to an abdominal/pelvis CT scan which was negative. Patient was sent home and states felt okay. She then states that she ate some supper and because almost instantly ill. Patient presents back to the ER with dry heaving and abdominal pain she describes as generalized and "all over". She was using phenergan tablets 12.5 mg without relief Patient had repeat lab this am which was unremarkable. Will check lipase only and give IVF Occurred At: home Onset: Rapid Duration: 1-3 hrs Pain Scale: Now & Worst: 10/10 Quality: cramping Location: generalized abdomen Radiation: no radiation 1 - diffuse cramping Activities at Onset: during/after eating (after eating ) Associated Symptoms: nausea/vomiting, DENIES: chest pain Hx of Similar Symptoms: Yes Allergies: Coded Allergies: Penicillins (Unverified Allergy, Unknown, HIVES, ITCHING, 10/09/16) Past History Patient Surgical History exploratory laparotomy for endometriosis GB Past Medical History Pt denies signifigant PMH Surgical History General: gallbladder Family History Family PMH: FOUND: diabetes Vaccines Hx Influenza Vaccination: Yes (06/2014) Hx Pneumococcal Vaccination: No Social History Does patient use chewing tobac: No Second Hand Exposure: No Substance Use Type: does not use, marijuana Alcohol Intake: none Marital Status: Sexuality: male partner Household Members: spouse, children Review of Systems Constitutional Constitutional: appetite decrease, dizziness, see HPI, weakness, DENIES: chills , fever Eyes General: DENIES: burning, itching Lids/Accessories: DENIES: erythema, swelling ENMT Ears: DENIES: pain Hearing: DENIES: tinnitus Balance: DENIES: vertigo Sinuses: DENIES: congestion, rhinorrhea Mouth/Throat: DENIES: painful swallowing, scratchy throat, sore throat Cardiovascular Cardiac: DENIES: chest pain Rhythm/Rate: tachycardia, DENIES: irregular beat, palpitations Pulmonary Respiratory: DENIES: cough, pleuritic chest pain, sputum GI Upper Abdomen: nausea, pain, see HPI, vomiting Lower Abdomen: diarrhea, pain, see HPI General: see HPI, DENIES: burning, dysuria, frequency, urgency Musculoskeletal General: DENIES: cramps, pain Integumentary Skin: DENIES: color change, itching, rash Neurological General: DENIES: change in strength, headache, numbness, seizures, syncope, weakness Psychiatric Psychiatric: anxiety Endocrine Endocrine: DENIES: heat/cold intolerance Hematologic/Lymphatic Hematologic/Lymphatic: DENIES: anemia, easy bruising Allergic/Immunological Allergic/Immunoligical: DENIES: frequent infections, hives, sneezing All other Systems All Other Systems: Reviewed and Negative Physical Exam General General Nourishment: well nourished, well developed, appears stated age, adult , obese, acute distress (due to n/v and dry heaving ) Vitals and Pain First Documented Vital Signs Date Time Temp Pulse Resp B/P Pulse Ox O2 Delivery O2 Flow Rate FiO2 10/09/16 19:55 98.3 100 24 144/98 98 Room Air Weight: Kilograms: Height (feet): 5 Height (inches): 7.00 Triage Pain Scale: Normal Exams: Head: Normocephalic w/o trauma Eyes: Pupils are PERRLA w/ EOMI, No scleral icterus, irritation, or foreign bodies noted ENMT: No facial trauma, nasal exudates, pharyngeal erythema, or exudates are noted Neck: Full range of motion, without adenopathy, JVD, bruits or thyromegaly Chest/Resp: Clear all christopher, with good airflow, and symmetry bilaterally CV: Regular rate and rhythm, without murmur or gallop, Pulses 2+ all extremities, capillary refill, <2 seconds all ext., no pedal edema noted Abdomen: Bowel sounds positive Lymphatic: No lymphadenopathy, or lymphedema noted Musculoskeletal: No tenderness, or deformity noted, good range of motion, all extremities Integumentary: No rashes, hives, or bruising noted, hair and nails, without abnormality Neurologic: Patient is alert, and oriented, cranial nerves, motor/sensory/ cerebellar, exams w/o gross deficits, to observation Abdomen (brief) Abdominal Brief: FOUND: bowel normo active x4, other (no guarding or rebound ) , soft, tender (generalized ) Differential Diagnoses Considering: Bowel Obstruction, Constipation, Gastroenteritis, Hepatitis, IBS, Ileus, Pancreatitis, Pyelonephritis, Renal Colic, Testicular Torsion, Tubovarian Abscess Progress Results/Orders Orders Procedure Category Date Status Time Iv Lock (Ed Only) EDM 10/09/16 Transmitted 20:05 Nothing By Mouth (Ed EDM 10/09/16 Transmitted Only) 20:05 Lipase LAB 10/09/16 Complete 20:05 Normal Saline (Normal PHA 10/09/16 Complete Saline Iv) 20:05 Prochlorperazine PHA 10/09/16 Complete (Compazine) 20:15 Ketorolac (Toradol) PHA 10/09/16 Complete 20:15 Famotidine (Pepcid 20 PHA 10/09/16 Complete Mg Inj.) 20:15 Lorazepam (Ativan) PHA 10/09/16 Complete 20:15 Diphenhydramine PHA 10/09/16 Complete (Benadryl) 21:30 Fentanyl (Fentanyl) PHA 10/09/16 Complete 21:30 Olanzapine (Zyprexa) PHA 10/09/16 Complete 22:15 Ondansetron Odt PHA 10/09/16 Complete (Prepack) (Zofran Odt 22:30 Lab Results Laboratory Tests Test 10/09/16 20:28 Lipase 277U/L Medications Current ED Medications Sodium Chloride (Normal Saline IV) 1,000 ml @ 1,000 mls/hr Q1H ONCE IV Last administered on 10/09/16t 20:28; Start 10/09/16 at 20:05; Stop 10/09/16 at 21:04 ; Status DC Prochlorperazine Edisylate (Compazine) 10 mg O ONCE IV Last administered on 20:30; Start 10/09/16 at 20:15; Stop 10/09/16 at 20:16; Status DC Ketorolac Tromethamine 30 mg 30 mg O ONCE IV Last administered on 10/09/16 20 :30; Start 10/09/16 at 20:15; Stop 10/09/16 at 20:16; Status DC Famotidine/Sodium Chloride (PEPCID 20 mg INJ./NS) 52 ml @ 100 mls/hr O ONCE IV Last administered on 10/09/16 20:33; Start 10/09/16 at 20:15; Stop at 20:46; Status DC Lorazepam (Ativan) 1 mg O ONCE IV Last administered on 10/09/16 20:19; Start 10/09/16 at 20:15; Stop 10/09/16 at 20:16; Status DC Diphenhydramine HCl (Benadryl) 25 mg O ONCE IV Last administered on 10/09/16 21:31; Start 10/09/16 at 21:30; Stop 10/09/16 at 21:31; Status DC Fentanyl (Fentanyl) 75 mcg O ONCE IV Last administered on 10/09/16 21:29; Start 10/09/16 at 21:30; Stop 10/09/16 at 21:31; Status DC Olanzapine (Zyprexa) 10 mg O ONCE IM Last administered on 10/09/16 22:23; Start 10/09/16 at 22:15; Stop 10/09/16 at 22:18; Status DC Ondansetron HCl (ZOFRAN ODT (PrePack)) 1 pack O ONCE SENT HOME ; Start at 22:30; Stop 10/09/16 at 22:31; Status DC Progress Progress Patient presents with violent repetitive vomiting episodes that have been a repeated occurrence the past 3 days. Patients work up including CT scan of her abd and pelvis yesterday was normal and lab did not indicate any etilology. Patient has required repeated anti emetics and pain med since in the ER without mcfp relief. Since lab was just drawn this AM, I did not repeat the lab with the exception of checking a lipase since that was not drawn today. Lipase was normal. patient admits that she does smoke marijuana and did smoke before she presented to the ER this evening and also remembers smoking prior the coming to the ER two days ago. I did mention that she may be experiencing symptoms of cannabis hyperemesis syndrome which patient and her spouse deny could be the issue. Patient is stable at this point for d/c; encouraged to follow through with GI consult that was recommended several months ago. SINTIA DINH APRN Oct 09, 2016 20:05
--- OUTSIDE RECORDS SUMMARY | 2016-10-09 20:14 | XMS REPORT | Continuity of Care Document ---
Author Author [facility] Organization [facility] Address Unknown Phone Unavailable Care Team Providers Care Crab Butcher Name Role Phone CHRISTIANE PERSAUD APRN Primary Care Physician [phone] Insurance Providers Guarantor Lindsey Parr Address [address] [place] [id number] c Email [email or web address] Other Policy Number [id number] Subscriber's Name Lindsey Parr Relationship 18 Self Group Number [id number] Effective Date 16 Expiration Date 16 Advance Directives Directive Response Recorded Date/Time Advanced Directives Type None 10/08/16 12:32am Ordered Resuscitation Status Full Code 10/08/16 3:57am DPOA for Healthcare Only No 10/08/16 5:41am Living Will No 10/08/16 5:41am Problems Active Problems Medical Problem Onset Date Status Abdominal pain Unknown Resolved Abnormal EKG Unknown Acute Diarrhea Unknown Resolved Group B Streptococcus carrier, delivered, current hospitalization Unknown Morbid obesity Unknown Chronic Nausea with vomiting Unknown Resolved Status post normal vaginal delivery Unknown Past Problems Medical Problem Onset Date Intractable nausea and vomiting Unknown Maxillary sinusitis, acute Unknown Pharyngitis Unknown UTI (urinary tract infection) Unknown Upper respiratory infection with cough and congestion Unknown Medications Current Home Medications Medication Dose Units Route Directions Days Qty Instructions Start Date Acetaminophen (Tylenol) 325 Mg Tablet 1 Tab Oral Every 4 Hours Prn 30 Tablet 08/13/16 Acyclovir 800 Mg Tablet 1 Tab Oral Daily 10/27/15 Ethinyl Estradiol/Drospirenone (Gianvi 3 Mg-0.02 Mg Tablet) 1 Each Tablet 08/13/16 Fluticasone Propionate (Fluticasone Prop 50 Mcg/Actuation Nasal [place]) 120 [place]/16 G [place] 2 [place] Each Nostril Daily 21 Days [address] Reji Campos Supervisor [facility] [address] [phone] 09/04/16 Promethazine Hcl 12.5 Mg Tablet 1 Tab Oral Every 6 Hours as needed for Nausea 20 Tablet 10/09/16 Past Home Medications Medication Directions Ordered Status Ethinyl Estradiol/Drospirenone (Arabella 28 Tablet) 1 Tab Tablet, 1 Tab Oral Daily 07/25/14 Discontinued Hydrocodone/Acetaminophen ([place] 5-325 Tablet) 1 Each Tablet, 1-2 Tab Oral Every 6 Hours as needed for Pain 07/25/14 Discontinued Hydrocodone/Acetaminophen ([place] 5-325 Tablet) 1 Each Tablet, 1-2 Tab Oral Every 4 Hours as needed for Pain 07/26/14 Discontinued Ibuprofen 800 Mg Tablet, 800 Mg Oral Every 8 Hours Prn for Pain 09/04/16 Discontinued Ondansetron Hcl (Zofran) 4 Mg Tablet, 4 Mg Oral Every 6 Hours for Nausea 08/07 Discontinued Social History Social History Problem Response Recorded Date/Time Onset Date Status Reason for Hospitalization Ab pain 10/09/2016 3:10pm Not Applicable Not Applicable Hx Substance Use No 10/08/2016 1:00am Not Applicable Not Applicable Hx Alcohol Use No 10/08/2016 1:00am Not Applicable Not Applicable Has the pt used tobacco in the last 12 months No 10/08/2016 5:27am Not Applicable Not Applicable Query Response Start Date Stop Date Smoking Status Never smoker Hospital Discharge Instructions Instructions: Care Instructions: I was in the hospital because (patient own words): nausea/vomiting/diarrhea/abdominal pain Discharge Diet: [place] diet as able; plently of fluids Discharge Activity: As tolerated Follow Up Appointments: [facility] Follow-up appt. with Christiane on October 16 at 9:15am. Appointment at [facility] Pending Lab / Results: No Pending Lab Expected Signs/Symptoms: Improvement of ab pain and bowel funciton. Notify Physician If: Temp >100.4. Intractable n/v. During Business Hours:: Please call the physician's office at After Business Hours:: Please call [phone] and have the real time operator page the physician. Pain Management/Treatment: Tylenol as needed Wound/Incision Care: n/a Condition at time of discharge: Good Plan of Care Discharge Date 10/09/16 3:33pm Disposition 01 DISCHARGED HOME, SELF-CARE Instructions/Education Provided Acute Nausea and Vomiting (DC) Prescriptions See Medication Section Care Plan and Goals See Discharge Instructions Section Functional Status Query Response Date Recorded Mobility Status Ambulatory October 08, 2016 6:29am Assistive Devices None October 08, 2016 6:29am Activity Limitations None October 08, 2016 6:29am Feeding Ability Independent October 08, 2016 6:29am Toileting Ability Independent October 08, 2016 6:29am Grooming Ability Independent October 08, 2016 6:29am Dressing Ability Independent October 08, 2016 6:29am Driving Ability Independent October 08, 2016 6:29am Housework Ability Independent October 08, 2016 6:29am Meal Preparation Ability Independent October 08, 2016 6:29am Stair Climbing Ability Independent October 08, 2016 6:29am Ability to complete ADL's impeded by No change October 08, 2016 6:29am Cognitive/Perceptual Impairments None October 08, 2016 6:29am Preferred Method of Learning Listening October 08, 2016 6:29am Allergies, Adverse Reactions, Alerts Allergen Type Severity Reaction Status Last Updated Penicillin Allergy Unknown HIVES, ITCHING Active 10/08/16 Immunizations Query Response on File Recorded Date/Time Hx Influenza Vaccination Y 06/201410/08/16 5:27am Hx Pneumococcal Vaccination No 10/08/16 5:27am Hx Influenza Vaccination Y 06/201410/08/16 5:27am Influenza Vaccine Hx NO 09/04/16 10:15am Tetanus Diptheria Vaccine History UP TO DATE 09/04/16 10:15am Tdap Vaccine Hx Yes 10/27/15 8:28am Vital Signs Acute Vital Signs Vital Response Date/Time Temperature (Fahrenheit) 96.8 deg F (96.8 - 99.1) 10/09/2016 12:28pm Temperature (Calculated Celsius) 36.99323 degrees C (36.0 - 37.3) 10/09/2016 12:28pm Pulse Rate (adult) 64 bpm (60 - 100) 10/09/2016 12:28pm Respiratory Rate 18 breaths/min (10 - 20) 10/09/2016 12:28pm O2 Sat by Pulse Oximetry 98 % (90 - 100) 10/09/2016 12:28pm Oxygen Delivery Method Room Air 10/09/2016 12:28pm Blood Pressure 130/91 mm Hg 10/09/2016 12:28pm Blood Pressure Source Automatic Cuff 10/09/2016 12:28pm Height (Feet) 5 feet 10/09/2016 9:31am Height (Inches) 7.00 inches 10/09/2016 9:31am Weight (Kilograms) 121.000 kg 10/09/2016 8:16am Body Mass Index (BMI) 42.1 10/08/2016 5:40am Results Laboratory Results Test Name Result Units Flags Reference Collection Date/Time Result Date/ Time Comments Group A Streptococcus Screen NEGATIVE NEGATIVE 09/04/2016 10:30am 10:41am Urine Collection Type CLEANCATCH-MIDSTREAM 09/04/2016 10:30am 09/04 10:41am Urine Color YELLOW YELLOW 09/04/2016 10:30am 09/04/2016 10:41am Urine Turbidity SLT CLDY CLEAR 09/04/2016 10:30am 09/04/2016 10:41am Urine Specific [place] 1.010 L 1.015-1.025 09/04/2016 10:30am 2016 10:41am [...] :41am Urine Bilirubin 1+ A NEGATIVE 09/04/2016 10:3009/04/2016 10:41am Urine Blood 1+ A NEGATIVE 09/04/2016 10:30am 09/04/2016 10:41am White Blood Count 6.5 T/MM3 4.5-11.0 10/09/2016 5:43am 10/09/2016 6: 09am Red Blood Count 3.96 M/MM3 L 4.00-5.20 10/09/2016 5:43am 10/09/2016 6: 09am Hemoglobin 12.9 GM/DL 12-16 10/09/2016 5:43am 10/09/2016 6:09am Hematocrit 37.7 % 36-46 10/09/2016 5:43am 10/09/2016 6:09am Mean Corpuscular Volume 95.2 UM3 80-100 10/09/2016 5:43am 10/09/2016 6: 09am Mean Corpuscular Hemoglobin 32.6 UUG 26-34 10/09/2016 5:43am 2016 6:09am Mean Corpuscular Hemoglobin Concent 34.2 GM/DL 31-37 10/09/2016 5:4310/09/2016 6:09am RDW Standard Deviation 44.1 FL 36.9-50.2 10/09/2016 5:4310/09/2016 6 :09am Platelet Count 263 T/MM3 130-400 10/09/2016 5:4310/09/2016 6:09am Mean Platelet Volume 10.1 UM3 9.4-12.4 10/09/2016 5:4310/09/2016 6: 09am Neutrophils (%) (Auto) 39.5 % 33-66 10/09/2016 5:43am 10/09/2016 6: 09am Lymphocytes (%) (Auto) 46.2 % H 23-45 10/09/2016 5:43am 10/09/2016 6: 09am Monocytes (%) (Auto) 13.0 % H 0-9.0 10/09/2016 5:43am 10/09/2016 6:09am Eosinophils (%) (Auto) 0.5 % 0-4 10/09/2016 5:4310/09/2016 6:09am Basophils (%) (Auto) 0.6 % 0-2 10/09/2016 5:4310/09/2016 6:09am Immature Granulocyte % (Auto) 0.2 % 0.0-0.5 10/09/2016 5:432016 6:09am Absolute Neutrophils (auto) 2.6 T/MM3 1.8-7.7 10/09/2016 5:432016 6:09am Absolute Lymphocytes (auto) 3.0 T/MM3 1-4.8 10/09/2016 5:432016 6:09am Absolute Monocytes (auto) 0.9 T/MM3 H 0-0.8 10/09/2016 5:432016 6:09am Absolute Eosinophils (auto) 0.0 T/MM3 0-0.5 10/09/2016 5:432016 6:09am Absolute Basophils (auto) 0.0 T/MM3 0-0.2 10/09/2016 5:4310/09/2016 6:09am Absolute Immature Granulocyte (auto 0.01 T/MM3 0.00-0.03 10/09/2016 5: 4310/09/2016 6:09am Icterus Index < 2 0-7 10/09/2016 5:4310/09/2016 6:22am Chemistry Specimen Hemolysis < 15 0-25 10/09/2016 5:4310/09/2016 6 :22am 0-25: Specimen Exhibited No Hemolysis. Turbidity < 20 0-20 10/09/2016 5:4310/09/2016 6:22am Sodium Level 144 MEQ/L D 134-144 10/09/2016 5:4310/09/2016 6:48am Potassium Level 3.5 MEQ/L L 3.6-5 10/09/2016 5:4310/09/2016 6:22am Chloride Level 110 MEQ/L D H 98-107 10/09/2016 5:43am 10/09/2016 6:48am Carbon Dioxide Level 24 MEQ/L 22-30 10/09/2016 5:43am 10/09/2016 6: 22am Anion Gap 10 MEQ/L 5-15 10/09/2016 5:4310/09/2016 6:22am Blood Urea Nitrogen 10.0 MG/DL 7-17 10/09/2016 5:4310/09/2016 6: 22am Creatinine 0.6 MG/DL L 0.7-1.2 10/09/2016 5:4310/09/2016 6:22am BUN/Creatinine Ratio 17 RATIO 6-26 10/09/2016 5:4310/09/2016 6:22am Glomerular Filtration Rate Calc 117 10/09/2016 5:43am 10/09/2016 6: 22am Glucose Level 85 MG/DL 65-110 10/09/2016 5:4310/09/2016 6:22am Calculated Osmolality 275 MOSM/KG 261-280 10/09/2016 5:4310/09/2016 6:22am Calcium Level 8.0 MG/DL D L 8.4-10.2 10/09/2016 5:4310/09/2016 6:48am Total Bilirubin 0.60 MG/DL 0.20-1.30 10/08/2016 1:0310/08/2016 1: 24am Alkaline Phosphatase 72 U/L 38-126 10/08/2016 1:0310/08/2016 1:24am Total Protein 7.5 G/DL 6.3-8.2 10/08/2016 1:0310/08/2016 1:24am Albumin 4.0 G/DL 3.5-5.0 10/08/2016 1:0310/08/2016 1:24am Globulin 3.5 G/DL 2.4-3.6 10/08/2016 1:0310/08/2016 1:24am Albumin/Globulin Ratio 1.1 RATIO 1.1-2.2 10/08/2016 1:0310/08/2016 1 :24am Aspartate Amino Transf (AST/SGOT) 19 U/L 14-36 10/08/2016 1:03am 2016 1:24am Alanine Aminotransferase (ALT/SGPT) 26 U/L 9-52 10/08/2016 1:0310/08 1:24am Troponin I < 0.012 ng/ml 0-0.12 10/08/2016 9:01am 10/08/2016 9:57am Troponin values with a difference of 55% increase from orginal troponin value represent a true biological DELTA value. (%increase Calc=Orginal Troponin value, divided by subsequent Troponin value, multiplied by 100) Lipase 159 U/L 23-300 10/08/2016 1:03am 10/08/2016 1:24am Stool for White Cells NEGATIVE NEGATIVE 10/09/2016 11:01am 2016 1:20pm Stool Campylobacter PCR NEGATIVE NEGATIVE 10/09/2016 11:01am 2016 1:00pm Stool C. difficile Toxin (PCR) NEGATIVE NEGATIVE 10/09/2016 11:01am 10/09/2016 1:00pm Stool Plesiomonas shigelloides PCR NEGATIVE NEGATIVE 10/09/2016 11: 01am 10/09/2016 1:00pm Stool Salmonella PCR NEGATIVE NEGATIVE 10/09/2016 11:01am 10/09/2016 1:00pm Stool Vibrio (PCR) NEGATIVE NEGATIVE 10/09/2016 11:01am 10/09/2016 1: 00pm Stool Vibrio cholera (PCR) NEGATIVE NEGATIVE 10/09/2016 11:01am 10/09 1:00pm Stool Yersinia enterocolitica (PCR) NEGATIVE NEGATIVE 10/09/2016 11: 01am 10/09/2016 1:00pm Stool Enteroaggregative E. coli PCR NEGATIVE NEGATIVE 10/09/2016 11: 01am 10/09/2016 1:00pm Stool Enteropathogenic E. coli (PCR N/A NEGATIVE 10/09/2016 11:01am 10/09/2016 1:00pm Stool Enterotoxigenic Ecoli PCR NEGATIVE NEGATIVE 10/09/2016 11:0110/09/2016 1:00pm Stool E. coli Shiga Toxins NEGATIVE NEGATIVE 10/09/2016 11:01am 10/09 1:00pm Stool E coli O157 PCR N/A NA/NEG 10/09/2016 11:01am 10/09/2016 1: 00pm Stool Shigella/EIEC (PCR) NEGATIVE NEGATIVE 10/09/2016 11:01am 2016 1:00pm Stool Cryptosporidium PCR NEGATIVE NEGATIVE 10/09/2016 11:01am 2016 1:00pm Stool Cyclospora species Detection NEGATIVE NEGATIVE 10/09/2016 11: 01am 10/09/2016 1:00pm Stool Entamoeba (PCR) NEGATIVE NEGATIVE 10/09/2016 11:01am 2016 1:00pm Stool Giardia Lamblia PCR NEGATIVE NEGATIVE 10/09/2016 11:01am 2016 1:00pm Stool Adenovirus (PCR) NEGATIVE NEGATIVE 10/09/2016 11:01am 2016 1:00pm Stool Astrovirus (PCR) NEGATIVE NEGATIVE 10/09/2016 11:01am 2016 1:00pm Stool Norovirus GI/GII PCR NEGATIVE NEGATIVE 10/09/2016 11:01am 10/09 1:00pm Stool Rotavirus A PCR NEGATIVE NEGATIVE 10/09/2016 11:01am 2016 1:00pm Stool Sapovirus (PCR) NEGATIVE NEGATIVE 10/09/2016 11:01am 2016 1:00pm Urine Collection Type CLEANCATCH-MIDSTREAM 10/08/2016 1:092016 1:34am Urine Color YELLOW YELLOW 10/08/2016 1:0910/08/2016 1:34am Urine Turbidity CLEAR CLEAR 10/08/2016 1:09am 10/08/2016 1:34am Urine Specific [place] 1.020 1.015-1.025 10/08/2016 1:092016 1:34am Urine pH 7.0 5.0-8.0 10/08/2016 1:09am 10/08/2016 1:34am Urine Leukocyte Esterase NEGATIVE NEGATIVE 10/08/2016 1:092016 1:34am Urine Nitrite NEGATIVE NEGATIVE 10/08/2016 1:0910/08/2016 1:34am Urine Protein TRACE A NEGATIVE 10/08/2016 1:0910/08/2016 1:34am Urine Glucose (UA) NEGATIVE NEGATIVE 10/08/2016 1:0910/08/2016 1: 34am Urine Ketones TRACE A NEGATIVE 10/08/2016 1:0910/08/2016 1:34am Urine Urobilinogen 0.2 EU/DL NORMAL 10/08/2016 1:09am 10/08/2016 1: 34am Urine Bilirubin NEGATIVE NEGATIVE 10/08/2016 1:0910/08/2016 1: 34am Urine Blood NEGATIVE NEGATIVE 10/08/2016 1:09am 10/08/2016 1:34am Urinalysis Comment MICROSCOPIC NOT IND. 10/08/2016 1:09am 2016 1:34am Name: LINDSEY PARR Unit #: [id number] : 1985 Sex: F Admit Date: 10/08/16 Loc / Svc: MED Discharge Date: DIAGNOSTIC IMAGING REPORT [facility] [id number]: ITS.REASON: R flank pain PROCEDURE: CT RENAL W/O CONTRAST: Encounter: Initial Comparison: None Technique: Axial CT images were performed through the abdomen and pelvis without intravenous contrast. Coronal and sagittal two-dimensional reformats. Automated Exposure Control and Iterative Reconstruction dose reducing techniques were utilized. Findings: The lung bases are clear. The unenhanced liver is unremarkable. Gallbladder is surgically absent. The spleen, pancreas and adrenal glands are within normal limits. The kidneys appear normal. No renal or ureteral stones. Bladder is normal. Uterus and ovaries are normal. No free fluid. No evidence of a bowel obstruction. The appendix is normal. Bone windows show no acute findings. Impression: No acute disease process seen. There is a preliminary report by Amaru. . Procedures No known history of procedures. Encounters Encounter Location Arrival/Admit Date Discharge/Depart Date Attending Provider Discharged Inpatient (obs) [facility] 10/08/16 3:56am 10/09/16 3: 33pm ESTELITA CERDA MD Departed Emergency Room [facility] 09/04/16 10:01am 09/04/16 10: 54am CLAUDINE PHAN APRN Departed Emergency Room [facility] 08/13/16 10:00am 08/13/16 10: 38am MARY GOTTLIEB APRN
[2016-10-09] MEDS ORDERED: LORAZEPAM 2 MG/ML INJECTION IV ONE (20:15)
[2016-10-09] MEDS ORDERED: FAMOTIDINE 20 MG in NORMAL SALINE 50 ML IV ONE (20:15)
[2016-10-09] MEDS ORDERED: KETOROLAC 30mg/ml INJECTION IV ONE (20:15)
[2016-10-09] MEDS ORDERED: PROCHLORPERAZINE 10mg/2ml INJECTION IV ONE (20:15)
--- NOTE | 2016-10-09 21:00 | NUR ---
PT STATUS PT RESTING QUIETLY, IN ROOM WITH PT, CALL LIGHT IN REACH. NO FURTHER VOMITING AT THIS TIME.
--- NOTE | 2016-10-09 21:05 | NUR ---
PROVIDER SINTIA DINH APRN IN ROOM WITH PT.
--- NOTE | 2016-10-09 21:15 | NUR ---
AMBULATION/RESTROOM PT ABULATES TO RESTROOM WITH , ONCE LEAVING RESTROOM PT STATES SHE IS NOT FEELING WELL AGAIN, BEGINS CRYING LOUDLY AND YELLING "SOMETHING'S WRONG". BY PT'S SIDE.
[2016-10-09] MEDS ORDERED: FENTANYL 100mcg/2ml INJECTION IV ONE (21:30)
[2016-10-09] MEDS ORDERED: DiphenhydrAMINE 50 MG/ML INJECTION IV ONE (21:30)
--- NOTE | 2016-10-09 21:39 | NUR ---
PT STATUS PT RESTING QUIETLY, APPEARS TO BE SLEEPING, REMAINS IN ROOM, CALL LIGHT IN REACH.
--- NOTE | 2016-10-09 22:10 | NUR ---
REPORT RECEIVED AND CARE ASSUMED AT THIS TIME.
[2016-10-09] MEDS ORDERED: OLANZAPINE 10 MG/VIAL INJECTION IM ONE (22:15)
[2016-10-09] MEDS ORDERED: ONDA4TAB7 PO (22:20)
[2016-10-09] MEDS ORDERED: ONDANSETRON ODT 4mg #3 (PrePack) SENT HOME ONE (22:30)
--- NOTE | 2016-10-09 22:53 | NUR ---
IVL SITE DC'D AT THIS TIME. CATH INTACT. DRSG APPLIED TO SITE.
--- NOTE | 2016-10-09 22:55 | NUR ---
DISMISSAL INSTRUCTIONS, ZOFRAN PREPACK AND RX GIVEN/REVIEWED WITH PT AND SIGNIFICANT OTHER. VERBALIZE UNDERSTANDING. PT ASSISTED TO W/C FOR DISMISSAL, ACCOMPANIED BY RN TO VEHICLE.
[2016-10-09 22:57] VITALS: BP 136/92; PULSE 72; RESP 16; O2SAT 99
== END 2016-10-09 22:55 | disposition home or self-care (01) ==
LOC: ED 19:50
DX: R10.84 Generalized abdominal pain (principal); G43.A0 Cyclical vomiting, in migraine, not intractable
CPT/HCPCS: 36415; 83690; 96361; 96365; 96375; 99284; J0780; J1200; J1885; J2060; J2358; J3010; J7030; J7050

== ENCOUNTER 2016-10-11 05:13 | Emergency (ER) | payer BC ==
[~2016-10-11] VITALS: Ht 170.2 cm; Wt 115.3 kg
[~2016-10-11 05:13] MED LIST changes: -IBUP-1547 PO; +ONDA4TAB7 PO
--- OUTSIDE RECORDS SUMMARY | 2016-10-11 05:17 | XMS REPORT | Continuity of Care Document ---
Author Author [facility] Organization [facility] Address Unknown Phone Unavailable Support Name Relationship Address Phone MARGARET MARTINEZ MD Caregiver [address] [address] Unavailable JAMAICA PERSAUD APRN Caregiver [address] [place] [address] Unavailable IVIS PARR Next Of Kin [address] [place] [address] Insurance Providers Guarantor Lindsey Parr Address [address] [place] [id number] c Email [email or web address] [email or web address] [employer] Other Policy Number [id number] Subscriber's Name Lindsey Parr Relationship 18 Self Group Number [id number] Effective Date 16 Expiration Date 16 Advance Directives Directive Response Recorded Date/Time Advanced Directives Type None 10/09/16 7:55pm Chief Complaint and Reason for Visit Chief Complaint Nausea,Vomiting,Diarrhea Reason for Visit Cyclic vomiting syndrome Nausea with vomiting Abdominal pain Problems Active Problems Medical Problem Onset Date Status Abdominal pain Unknown Resolved Abnormal EKG Unknown Acute Cyclic vomiting syndrome Unknown Acute Diarrhea Unknown Resolved Group B [...] Fluticasone Propionate (Fluticasone Prop 50 Mcg/Actuation Nasal Bunkie) 120 Bunkie/16 G Bunkie 2 Bunkie Each Nostril Daily 21 Days [address] Reji Campos [employer] [facility] [address] [phone] 09/04/16 Ondansetron (Zofran Odt) 4 Mg Tab.rapdis 4 Mg Oral Q6h/0300,0900,1500,2100 for Nausea 10 Tablet Oral disintegrating tablet 10/09/16 Promethazine Hcl 12.5 Mg Tablet 1 Tab Oral Every 6 Hours as needed for Nausea 20 Tablet 10/09/16 Past Home Medications Medication Directions Ordered Status Ethinyl Estradiol/Drospirenone (Arabella 28 Tablet) 1 Tab Tablet, 1 Tab Oral Daily 07/25/14 Discontinued Hydrocodone/Acetaminophen ([place] 5-325 Tablet) 1 Each Tablet, 1-2 Tab Oral Every 6 Hours as needed for Pain 07/25/14 Discontinued Hydrocodone/Acetaminophen ([place] 5-325 Tablet) 1 Each Tablet, 1-2 Tab Oral Every 4 Hours as needed for Pain 07/26/14 Discontinued Ibuprofen 800 Mg Tablet, 800 Mg Oral Every 8 Hours Prn for Pain 09/04/16 Discontinued Ondansetron Hcl (Zofran) 4 Mg Tablet, 4 Mg Oral Every 6 Hours for Nausea 08/07 Discontinued Social History Social History Problem Response Recorded Date/Time Onset Date Status Hx Substance Use No 10/09/2016 8:48pm Not Applicable Not Applicable Hx Alcohol Use No 10/09/2016 8:48pm Not Applicable Not Applicable Has the pt used tobacco in the last 12 months No 10/08/2016 5:27am Not Applicable Not Applicable Query Response Start Date Stop Date Smoking Status Current every day smoker Hospital Discharge Instructions No hospital discharge instructions. Plan of Care Discharge Date 10/09/16 10:55pm Disposition 01 DISCHARGED HOME, SELF-CARE Condition at Discharge Stable Instructions/Education Provided Acute Nausea and Vomiting (ED) Abdominal Pain (ED) Prescriptions See Medication Section Referrals JAMAICA PERSAUD APRN Address: [address] [place] [address] Note: follow up in 2 days unless improving. Recommend follow up with a senior service aide for evaluation of your abdominal pain. Functional Status No functional status results. Allergies, Adverse Reactions, Alerts Allergen Type Severity Reaction Status Last Updated Penicillin Allergy Unknown HIVES, ITCHING Active 10/09/16 Immunizations Query Response on File Recorded Date/Time Hx Influenza Vaccination Y 06/201410/08/16 5:27am Hx Pneumococcal Vaccination No 10/08/16 5:27am Hx Influenza Vaccination Y 06/201410/08/16 5:27am Influenza Vaccine Hx NO 10/09/16 8:48pm Tetanus Diptheria Vaccine History UP TO DATE 10/09/16 8:48pm Tdap Vaccine Hx Yes 10/27/15 8:28am Vital Signs Acute Vital Signs Vital Response Date/Time Temperature (Fahrenheit) 98.3 deg F (96.8 - 99.1) 10/09/2016 7:55pm Temperature (Calculated Celsius) 36.25171 degrees C (36.0 - 37.3) 10/09/2016 7:55pm Pulse Rate (adult) 72 bpm (60 - 100) 10/09/2016 10:57pm Respiratory Rate 16 breaths/min (10 - 20) 10/09/2016 10:57pm O2 Sat by Pulse Oximetry 99 % (90 - 100) 10/09/2016 10:57pm Oxygen Delivery Method Room Air 10/09/2016 12:28pm Blood Pressure 136/92 mm Hg 10/09/2016 10:57pm Blood Pressure Source Automatic Cuff 10/09/2016 12:28pm Height (Feet) 5 feet 10/09/2016 7:55pm Height (Inches) 7.00 inches 10/09/2016 7:55pm Weight (Kilograms) 120.000 kg 10/09/2016 7:55pm Body Mass Index (BMI) 41.0 10/09/2016 7:55pm Results Laboratory Results Test Name Result Units Flags Reference Collection Date/Time Result Date/ Time Comments Group A Streptococcus Screen NEGATIVE NEGATIVE 09/04/2016 10:30am 10:41am Urine Collection Type CLEANCATCH-MIDSTREAM 09/04/2016 10:30am 09/04 10:41am Urine Color YELLOW YELLOW 09/04/2016 10:30am 09/04/2016 10:41am Urine Turbidity SLT CLDY CLEAR 09/04/2016 10:30am 09/04/2016 10:41am Urine Specific Walden 1.010 L 1.015-1.025 09/04/2016 10:30am 2016 10:41am [...] Corpuscular Hemoglobin Concent 34.2 GM/DL 31-37 10/09/2016 5:43am 10/09/2016 6:09am RDW Standard Deviation 44.1 FL 36.9-50.2 10/09/2016 5:43am 10/09/2016 6 :09am Platelet Count 263 T/MM3 130-400 10/09/2016 5:43am 10/09/2016 6:09am Mean Platelet Volume 10.1 UM3 9.4-12.4 10/09/2016 5:4310/09/2016 6: 09am Neutrophils (%) (Auto) 39.5 % 33-66 10/09/2016 5:4310/09/2016 6: 09am Lymphocytes (%) (Auto) 46.2 % H 23-45 10/09/2016 5:4310/09/2016 6: 09am Monocytes (%) (Auto) 13.0 % H 0-9.0 10/09/2016 5:4310/09/2016 6:09am Eosinophils (%) (Auto) 0.5 % 0-4 10/09/2016 5:4310/09/2016 6:09am Basophils (%) (Auto) 0.6 % 0-2 10/09/2016 5:10/09/2016 6:09am Immature Granulocyte % (Auto) 0.2 % 0.0-0.5 10/09/2016 5:2016 6:09am Absolute Neutrophils (auto) 2.6 T/MM3 1.8-7.7 10/09/2016 5:432016 6:09am Absolute Lymphocytes (auto) 3.0 T/MM3 1-4.8 10/09/2016 5:2016 6:09am Absolute Monocytes (auto) 0.9 T/MM3 H 0-0.8 10/09/2016 5:2016 6:09am Absolute Eosinophils (auto) 0.0 T/MM3 0-0.5 10/09/2016 5:2016 6:09am Absolute Basophils (auto) 0.0 T/MM3 0-0.2 10/09/2016 5:10/09/2016 6:09am Absolute Immature Granulocyte (auto 0.01 T/MM3 0.00-0.03 10/09/2016 5: 10/09/2016 6:09am Icterus Index < 2 0-7 10/09/2016 5:4310/09/2016 6:22am Chemistry Specimen Hemolysis < 15 0-25 10/09/2016 5:4310/09/2016 6 :22am 0-25: Specimen Exhibited No Hemolysis. Turbidity < 20 0-20 10/09/2016 5:43am 10/09/2016 6:22am Sodium Level 144 MEQ/L D 134-144 10/09/2016 5:43am 10/09/2016 6:48am Potassium Level 3.5 MEQ/L L 3.6-5 10/09/2016 5:43am 10/09/2016 6:22am Chloride Level 110 MEQ/L D H 98-107 10/09/2016 5:43am 10/09/2016 6:48am Carbon Dioxide Level 24 MEQ/L 22-30 10/09/2016 5:43am 10/09/2016 6: 22am Anion Gap 10 MEQ/L 5-15 10/09/2016 5:4310/09/2016 6:22am Blood Urea Nitrogen 10.0 MG/DL 7-10/09/2016 5:43am 10/09/2016 6: 22am Creatinine 0.6 MG/DL L 0.7-1.2 10/09/2016 5:43am 10/09/2016 6:22am BUN/Creatinine Ratio 17 RATIO 6-26 10/09/2016 5:43am 10/09/2016 6:22am Glomerular Filtration Rate Calc 117 10/09/2016 5:43am 10/09/2016 6: 22am Glucose Level 85 MG/DL 65-110 10/09/2016 5:43am 10/09/2016 6:22am Calculated Osmolality 275 MOSM/KG 261-280 10/09/2016 5:43am 10/09/2016 6:22am Calcium Level 8.0 MG/DL D L 8.4-10.2 10/09/2016 5:43am 10/09/2016 6:48am Total Bilirubin 0.60 MG/DL 0.20-1.30 10/08/2016 1:03am 10/08/2016 1: 24am Alkaline Phosphatase 72 U/L 38-126 10/08/2016 1:03am 10/08/2016 1:24am Total Protein 7.5 G/DL 6.3-8.2 10/08/2016 1:03am 10/08/2016 1:24am Albumin 4.0 G/DL 3.5-5.0 10/08/2016 1:03am 10/08/2016 1:24am Globulin 3.5 G/DL 2.4-3.6 10/08/2016 1:03am 10/08/2016 1:24am Albumin/Globulin Ratio 1.1 RATIO 1.1-2.2 10/08/2016 1:03am 10/08/2016 1 :24am Aspartate Amino Transf (AST/SGOT) 19 U/L 14-36 10/08/2016 1:03am 2016 1:24am Alanine Aminotransferase (ALT/SGPT) 26 U/L 9-52 10/08/2016 1:03am 10/08 1:24am Troponin I < 0.012 ng/ml 0-0.12 10/08/2016 9:01am 10/08/2016 9:57am Troponin values with a difference of 55% increase from orginal troponin value represent a true biological DELTA value. (%increase Calc=Orginal Troponin value, divided by subsequent Troponin value, multiplied by 100) Stool for White Cells NEGATIVE NEGATIVE 10/09/2016 11:01am 2016 1:20pm Stool Campylobacter PCR NEGATIVE NEGATIVE 10/09/2016 11:012016 1:00pm Stool C. difficile Toxin (PCR) NEGATIVE NEGATIVE 10/09/2016 11:01am 10/09/2016 1:00pm Stool Plesiomonas shigelloides PCR NEGATIVE NEGATIVE 10/09/2016 11: 0110/09/2016 1:00pm Stool Salmonella PCR NEGATIVE NEGATIVE 10/09/2016 11:01am 10/09/2016 1:00pm Stool Vibrio (PCR) NEGATIVE NEGATIVE 10/09/2016 11:01am 10/09/2016 1: 00pm Stool Vibrio cholera (PCR) NEGATIVE NEGATIVE 10/09/2016 11:0110/09 1:00pm Stool Yersinia enterocolitica (PCR) NEGATIVE NEGATIVE 10/09/2016 11: 01am 10/09/2016 1:00pm Stool Enteroaggregative E. coli PCR NEGATIVE NEGATIVE 10/09/2016 11: 0110/09/2016 1:00pm Stool Enteropathogenic E. coli (PCR N/A NEGATIVE 10/09/2016 11:01am 10/09/2016 1:00pm Stool Enterotoxigenic Ecoli PCR NEGATIVE NEGATIVE 10/09/2016 11:01am 10/09/2016 1:00pm Stool E. coli Shiga Toxins NEGATIVE [...] 2016 1:00pm Urine Collection Type CLEANCATCH-MIDSTREAM 10/08/2016 1:09am 2016 1:34am Urine Color YELLOW YELLOW 10/08/2016 1:0910/08/2016 1:34am Urine Turbidity CLEAR CLEAR 10/08/2016 1:09am 10/08/2016 1:34am Urine Specific Walden 1.020 1.015-1.025 10/08/2016 1:092016 1:34am Urine pH 7.0 5.0-8.0 10/08/2016 1:09am 10/08/2016 1:34am Urine Leukocyte Esterase NEGATIVE NEGATIVE 10/08/2016 1:09am 2016 1:34am Urine Nitrite NEGATIVE NEGATIVE 10/08/2016 1:09am 10/08/2016 1:34am Urine Protein TRACE A NEGATIVE 10/08/2016 1:09am 10/08/2016 1:34am Urine Glucose (UA) NEGATIVE NEGATIVE 10/08/2016 1:09am 10/08/2016 1: 34am Urine Ketones TRACE A NEGATIVE 10/08/2016 1:09am 10/08/2016 1:34am Urine Urobilinogen 0.2 EU/DL NORMAL 10/08/2016 1:09am 10/08/2016 1: 34am Urine Bilirubin NEGATIVE NEGATIVE 10/08/2016 1:09am 10/08/2016 1: 34am Urine Blood NEGATIVE NEGATIVE 10/08/2016 1:09am 10/08/2016 1:34am Urinalysis Comment MICROSCOPIC NOT IND. 10/08/2016 1:09am 2016 1:34am Lipase 277 U/L 23-300 10/09/2016 8:28pm 10/09/2016 8:41pm Procedures No known history of procedures. Encounters Encounter Location Arrival/Admit Date Discharge/Depart Date Attending Provider Departed Emergency Room [facility] 10/09/16 7:50pm 10/09/16 10: 55pm MARGARET MARTINEZ MD Discharged Inpatient (obs) [facility] 10/08/16 3:56am 10/09/16 3: 33pm ESTELITA CERDA MD Departed Emergency Room [facility] 09/04/16 10:01am 09/04/16 10: 54am CLAUDINE PHAN APRN Departed Emergency Room [facility] 08/13/16 10:00am 08/13/16 10: 38am MARY GOTTLIEB APRN Recent Diagnosis
[2016-10-11 06:00] VITALS: Ht 170.2 cm; Wt 115.3 kg
[2016-10-11] MEDS ORDERED: METO-230 PO (06:14)
[2016-10-11] MEDS ORDERED: SUCR1TAB PO (06:14)
[2016-10-11] MEDS ORDERED: PANT40TA27 PO (06:14)
[2016-10-11] MEDS ORDERED: ONDANSETRON 4mg/2ml INJECTION IV ONE (06:30)
[2016-10-11] MEDS ORDERED: NORMAL SALINE 1,000 ML IV ONE ×2 (06:30→08:00)
--- NOTE | 2016-10-11 06:35 | NUR ---
IV IVL STARTED.
--- NOTE | 2016-10-11 06:45 | NUR ---
MEDICATION IVF INFUSING ORDERED AND ZOFRAN 4MG IVP ADMINISTERED
[2016-10-11 06:47] LABS: BASOPHILS % (AUTO) 0.3 % (0-2); IMMATURE GRANULOCYTE # (AUTO) 0.01 T/MM3 (0.00-0.03); IMMATURE GRANULOCYTE % (AUTO) 0.1 % (0.0-0.5); LYMPHOCYTES # (AUTO) 2.4 T/MM3 (1-4.8); LYMPHOCYTES % (AUTO) 23.5 % (23-45); MEAN CORPUSCULAR HGB 32.7 UUG (26-34); MEAN CORPUSCULAR HGB CONC(MCHC 35.7 GM/DL (31-37); MEAN CORPUSCULAR VOLUME 91.5 UM3 (80-100); MEAN PLATELET VOLUME 9.7 UM3 (9.4-12.4); MONOCYTES # (AUTO) 0.8 T/MM3 (0-0.8); MONOCYTES % (AUTO) 7.5 % (0-9.0); NEUTROPHILS % (AUTO) 68.6 % (33-66); RED BLOOD COUNT 4.59 M/MM3 (4.00-5.20); WBC - WHITE BLOOD COUNT 10.2 T/MM3 (4.5-11.0)
[2016-10-11 06:56] LABS: ALBUMIN 4.3 G/DL (3.5-5.0); ALBUMIN/GLOBULIN RATIO 1.2 RATIO (1.1-2.2); ALKALINE PHOSPHATASE 72 U/L (38-126); ALT (SGPT) 29 U/L (9-52); ANION GAP 17 MEQ/L (5-15); AST (SGOT) 19 U/L (14-36); BUN/CREATININE RATIO 20 RATIO (6-26); CALCIUM 9.2 MG/DL (8.4-10.2); CHLORIDE 104 MEQ/L (98-107); CO2 - CARBON DIOXIDE 20 MEQ/L (22-30); CREATININE 0.6 MG/DL (0.7-1.2); GLOMERULAR FILTRATION RATE 117; GLUCOSE 109 MG/DL (65-110); LIPASE 270 U/L (23-300); POTASSIUM 3.4 MEQ/L (3.6-5); SODIUM 141 MEQ/L (134-144)
--- NOTE | 2016-10-11 07:13 | ERPDOC ---
Departure Disposition Decision Date: Oct 11, 2016 Disposition Decision Time: 08:30 Disposition: 01 DISCHARGED HOME, SELF-CARE Impression Impression Impression: Primary Impression: Cyclic vomiting syndrome Vomiting Intractability: non-intractable Nausea presence: with nausea Qualified Codes: G43.A0 - Cyclical vomiting, not intractable Severity: Moderate Condition: Improved Seen By: Physician only Referrals: J[place]ICA PERSAUD APRN (Family) 2 Days Patient Instructions: Acute Nausea and Vomiting (ED) Problems/Meds/Labs Reviewed?: Yes Medications reviewed and manag: Yes Follow up care ordered?: Yes Mental Status: Alert, Oriented Scripts Potassium Chloride (Potassium Chloride) 20 Meq Tab.er.prt 20 MEQ PO DAILY for 2 Days, #2 TAB 0 Refills Prov: PA JOAQUIN DO 10/11/16 Ondansetron (Zofran Odt) 4 Mg Tab.rapdis 4 MG PO Q4HR Y for NAUSEA &/OR VOMITING for 3 Days, #18 TAB 0 Refills Prov: PA JOAQUIN DO 10/11/16 HPI - General Medical General Chief Complaint: Abdominal Pain Stated Complaint: VOMITING,ABD PAIN Time Seen by Provider: 06:18 Source: patient Exam Limitations: no limitations HPI - General Medical Initial Comments 31-year-old female presents to the emergency department with a chief complaint of nausea and vomiting. Patient was seen and evaluated in the emergency department and kept in the hospital for 23 hour observation and discharged home on October 09. Patient was again seen in the emergency department on October 09. Patient does note that she has been smoking marijuana prior to onset of her symptoms of nausea and vomiting. Patient also notes mild generalized abdominal discomfort without radiation. The abdominal discomfort is described as cramping. Patient does note that the diarrhea has resolved. She states that her symptoms are improving but she still does note some intermittent nausea and vomiting. Patient has been eating heavy foods at home and not following the instructed dietary restrictions. Patient denies any trauma, travel, poorly prepared food or recent antibiotic use. No other complaints or associated symptoms. Occurred At: home Onset: Gradual Allergies: Coded Allergies: Penicillins (Unverified Allergy, Unknown, HIVES, ITCHING, 10/09/16) Past History Patient Surgical History exploratory laparotomy for endometriosis GB Past Medical History Pt denies signifigant PMH Surgical History General: gallbladder Family History Family PMH: FOUND: diabetes Vaccines Hx Influenza Vaccination: Yes (06/2014) Hx Pneumococcal Vaccination: No Social History Smoking Status: Never smoker Does patient use chewing tobac: No Second Hand Exposure: No Substance Use Type: marijuana Alcohol Intake: none Marital Status: Sexuality: male partner Household Members: spouse, children Review of Systems Constitutional Constitutional: DENIES: chills, fever Eyes General: DENIES: erythema, exudate Lids/Accessories: DENIES: erythema, swelling Vision: DENIES: acuity, blurring ENMT Ears: DENIES: drainage, erythema Hearing: DENIES: hearing loss Balance: DENIES: ataxia, falling to one side Sinuses: DENIES: congestion, pain Nose: DENIES: pain Mouth/Throat: DENIES: painful swallowing, sore throat Teeth: DENIES: pain Jaw: DENIES: pain Cardiovascular Cardiac: DENIES: chest pain, dyspnea on exertion Rhythm/Rate: DENIES: irregular beat, palpitations Vascular: DENIES: pedal edema, unilateral swelling Pulmonary Respiratory: DENIES: cough, dyspnea, pleuritic chest pain, sputum GI Upper Abdomen: nausea, vomiting, DENIES: pain Lower Abdomen: DENIES: diarrhea, pain General: DENIES: dysuria, frequency Musculoskeletal General: DENIES: joint pain, tenderness Integumentary Skin: DENIES: itching, rash Neurological General: DENIES: headache, numbness, weakness Psychiatric Psychiatric: DENIES: emotional instability, suicidal ideation/attempt Endocrine Endocrine: DENIES: polydipsia, polyphagia Hematologic/Lymphatic Hematologic/Lymphatic: DENIES: frequent nosebleeds, lymphadenopathy Allergic/Immunological Allergic/Immunoligical: DENIES: allergic reactions, hives Physical Exam General General Nourishment: well nourished, well developed, appears stated age, no acute distress, adult General Body Habitus: well groomed Vitals and Pain First Documented Vital Signs Date Time Temp Pulse Resp B/P Pulse Ox O2 Delivery O2 Flow Rate FiO2 10/11/16 06:00 98.0 73 32 152/97 98 Room Air Weight: Kilograms: 115.300 Height (feet): 5 Height (inches): 7.00 Triage Pain Scale: RN VS reviewed by Provider: Yes Normal Exams: Head: Normocephalic w/o trauma Eyes: Pupils are PERRLA w/ EOMI, No scleral icterus, irritation, or foreign bodies noted ENMT: No facial trauma, nasal exudates, pharyngeal erythema, or exudates are noted Dental: No fractured, loose, or missing teeth noted Neck: Full range of motion, without adenopathy, JVD, bruits or thyromegaly Chest/Resp: Clear all christopher, with good airflow, and symmetry bilaterally CV: Regular rate and rhythm, without murmur or gallop, Pulses 2+ all extremities, capillary refill, <2 seconds all ext., no pedal edema noted Abdomen: Bowel sounds positive, soft, non-tender, non-distended, no hepatosplenomegaly, masses or bruits noted Lymphatic: No lymphadenopathy, or lymphedema noted Musculoskeletal: No tenderness, or deformity noted, good range of motion, all extremities Integumentary: No rashes, hives, or bruising noted, hair and nails, without abnormality Neurologic: Patient is alert, and oriented, cranial nerves, motor/sensory/ cerebellar, exams w/o gross deficits, to observation Psychiatric: Patient exhibits, appropriate attention, emotion and affect Differential Diagnoses Considering: Medication Effect, Metabolic, UTI, Other (cannabis induced cyclical vomiting syndrome) Progress Results/Orders Orders Procedure Category Date Status Time Cbc W/Auto LAB 10/11/16 Complete Diff-Reflex Manual Cmp - Comprehensive LAB 10/11/16 Complete Metabolic Lipase LAB 10/11/16 Complete LAB 10/11/16 Complete Qualitative, Urine 06:25 Ondansetron Inj PHA 10/11/16 Complete (Zofran) 06:30 Normal Saline (Normal PHA 10/11/16 Complete Saline Iv) 06:30 Iv Lock (Ed Only) EDM 10/11/16 Transmitted 06:32 Morphine Sulfate PHA 10/11/16 Complete (Morphine) 07:15 Prochlorperazine PHA 10/11/16 Complete (Compazine) 07:15 EKG EKG 10/11/16 Taken Troponin I W LAB 10/11/[address] Abd/Pelvis W/O CT 10/11/16 Resulted Contrast 07:36 UA, LAB 10/11/16 Complete Dip&Micro(Complete) & 07:36 Normal Saline (Normal PHA 10/11/16 Complete Saline Iv) 08:00 Prochlorperazine PHA 10/11/16 Complete (Compazine) 08:30 Lorazepam (Ativan) PHA 10/11/16 Complete 09:15 Lab Results Laboratory Tests Test 10/11/16 06:33 10/11/16 06:40 10/11/16 07:36 Troponin I < 0.012ng/ml Chemistry Specimen Hemolysis < 15 < 15 White Blood Count 10.2T/MM3 Red Blood Count 4.59M/MM3 Hemoglobin 15.0GM/DL Hematocrit 42.0% Mean Corpuscular Volume 91.5UM3 Mean Corpuscular Hemoglobin 32.7UUG Mean Corpuscular Hemoglobin Concent 35.7GM/DL RDW Standard Deviation 41.9FL Platelet Count 323T/MM3 Mean Platelet Volume 9.7UM3 Immature Granulocyte % (Auto) 0.1% Neutrophils (%) (Auto) 68.6% Lymphocytes (%) (Auto) 23.5% Monocytes (%) (Auto) 7.5% Eosinophils (%) (Auto) 0.0% Basophils (%) (Auto) 0.3% Absolute Immature Granulocyte (auto 0.01T/MM3 Absolute Neutrophils (auto) 7.0T/MM3 Absolute Lymphocytes (auto) 2.4T/MM3 Absolute Monocytes (auto) 0.8T/MM3 Absolute Eosinophils (auto) 0.0T/MM3 Absolute Basophils (auto) 0.0T/MM3 Turbidity < 20 Sodium Level 141MEQ/L Potassium Level 3.4MEQ/L Chloride Level 104MEQ/L Carbon Dioxide Level 20MEQ/L Anion Gap 17MEQ/L Blood Urea Nitrogen 12.0MG/DL Creatinine 0.6MG/DL Glomerular Filtration Rate Calc 117 BUN/Creatinine Ratio 20RATIO Glucose Level 109MG/DL Calculated Osmolality 272MOSM/KG Calcium Level 9.2MG/DL Total Bilirubin 1.00MG/DL Icterus Index < 2 Aspartate Amino Transf (AST/SGOT) 19U/L Alanine Aminotransferase (ALT/SGPT) 29U/L Alkaline Phosphatase 72U/L Total Protein 8.0G/DL Albumin 4.3G/DL Globulin 3.7G/DL Albumin/Globulin Ratio 1.2RATIO Lipase 270U/L Urine Collection Type Cleancatch-midstream Urine Color Yellow Urine Turbidity Clear Urine pH 7.5 Urine Specific [place] 1.015 Urine Protein Trace Urine Glucose (UA) Negative Urine Ketones 3+ Urine Blood 1+ Urine Nitrite Negative Urine Bilirubin 1+ Urine Urobilinogen 0.2EU/DL Urine Leukocyte Esterase Negative Urine RBC None seen/HPF Urine WBC 1-3/HPF Urine Squamous Epithelial Cells 10-20 Urine Bacteria 1+ Urine Mucus Present Urine Culture Indicated Cult not indicated Urine Test Negative Medications Current ED Medications Ondansetron HCl 4 mg 4 mg O ONCE IV Last administered on 10/11/16 06:42; Start 10/11/16 at 06:30; Stop 10/11/16 at 06:31; Status DC Sodium Chloride (Normal Saline IV) 1,000 ml @ 999 mls/hr Q1H1M ONCE IV Last administered on 10/11/16 06:41; Start 10/11/16 at 06:30; Stop 10/11/16 at 07:30 ; Status DC Morphine Sulfate (Morphine) 4 mg O ONCE IV Last administered on 10/11/16 08: 11; Start 10/11/16 at 07:15; Stop 10/11/16 at 07:16; Status DC Prochlorperazine Edisylate 10 mg 10 mg O ONCE IM ; Start 10/11/16 at 07:15; Stop 10/11/16 at 08:18; Status DC Sodium Chloride (Normal Saline IV) 1,000 ml @ 999 mls/hr Q1H1M ONCE IV Last administered on 10/11/16 08:11; Start 10/11/16 at 08:00; Stop 10/11/16 at 09:00 ; Status DC Prochlorperazine Edisylate (Compazine) 10 mg O ONCE IV Last administered on 08:18; Start 10/11/16 at 08:30; Stop 10/11/16 at 08:31; Status DC Lorazepam (Ativan) 1 mg O ONCE IV Last administered on 10/11/16 09:14; Start 10/11/16 at 09:15; Stop 10/11/16 at 09:16; Status DC Progress Progress Labs / imaging were discussed in detail with the patient and family and questions are answered. Patient is given 2 L normal saline intravenously times one in the emergency Department. Patient is given Zofran 4 mg IV 1 with improvement of symptoms. She is given Compazine 10 mg IV 1 with improvement of symptoms. Patient is given analgesic pain medication intravenously with improvement of symptoms. Patient is given Ativan 1 mg intravenously in the emergency Department. Patient does not exhibit any emesis in the emergency Department. Patient is discharged home in improved condition. She is to follow up as instructed. She is counseled regarding the importance of her gastroenterology follow-up. She is also counseled regarding the clear liquid diet and avoidance of smoking marijuana. Patient calls the airway controller office from the emergency department as secures follow-up with gastroenterology on Friday of this coming week. She is discharged home in improved condition. She is to follow up as instructed. Patient is to return to the emergency Department if her condition worsens or changes in any manner. Patient is provided with a prescription for Zofran ODT. She is in agreement with the current plan of management. EKG EKG : Rate: 60-100 Rhythm: sinus [place]: normal QRS: normal Intervals: normal ST/T: other (T wave changes unchanged from prior ekg. ) Interpreted by: signing physician EKG Comments EKG - Similar to 10/09/16. CT CT : CT: Abd/Pelvis no contrast Interpretation: Normal PA JOAQUIN DO Oct 11, 2016 07:13
[2016-10-11] MEDS ORDERED: PROCHLORPERAZINE 10mg/2ml INJECTION IM ONE (07:15)
[2016-10-11] MEDS ORDERED: MORPHINE SULFATE 4 MG SYRINGE IV ONE (07:15)
[2016-10-11 07:41] LABS: BLOOD, URINE 1+ (NEGATIVE); COLOR,URINE YELLOW (YELLOW); LEUKOCYTE ESTERASE ,URINE NEGATIVE (NEGATIVE); NITRITE,URINE NEGATIVE (NEGATIVE); UROBILINOGEN,URINE 0.2 EU/DL (NORMAL)
[2016-10-11 07:48] LABS: BACTERIA,URINE 1+ (NEGATIVE); MUCUS,URINE PRESENT; RBC,URINE NONE SEEN /HPF (0-3)
--- NOTE | 2016-10-11 08:12 | NUR ---
EKG EKG TAKEN AND GIVEN TO DR JOAQUIN
[2016-10-11] MEDS ORDERED: PROCHLORPERAZINE 10mg/2ml INJECTION IV ONE (08:30)
--- NOTE | 2016-10-11 08:30 | NUR ---
RADIOLOGY PT TO RADIOLOGY PER CART
--- NOTE | 2016-10-11 08:40 | NUR ---
RADIOLOGY PT FROM RADIOLOGY PER CART
--- NOTE | 2016-10-11 09:00 | DI ---
Indication: ITS.REASON: pain PROCEDURE: CT ABD/PELVIS W/O CONTRAST: Encounter: Initial Comparison: Renal CT dated October 08, 2016 Technique: Axial CT images were performed through the abdomen and pelvis without intravenous contrast. Coronal and sagittal two-dimensional reformats. Automated Exposure Control and Iterative Reconstruction dose reducing techniques were utilized. Findings: The lung bases are clear. The unenhanced contours of the liver, spleen, pancreas and adrenal glands are within normal limits. The kidneys are normal. No renal or ureteral stone disease. Bladder is normal. Gallbladder is surgically absent. No abdominal or pelvic lymphadenopathy. No free fluid or free air. Uterus and ovaries appear normal. Unopacified small and large bowel appear grossly normal. The appendix is normal. Bone windows are within normal limits. Impression: No acute disease process seen. Stable exam. .
[2016-10-11] MEDS ORDERED: ONDA4TAB7 PO (09:14)
[2016-10-11] MEDS ORDERED: POTA20TA87 PO (09:15)
[2016-10-11] MEDS ORDERED: LORAZEPAM 2 MG/ML INJECTION IV ONE (09:15)
--- NOTE | 2016-10-11 09:20 | NUR ---
STATUS PT REPORTS PAIN IS 6/10 BUT NAUSEA REMAINS SAME
--- NOTE | 2016-10-11 09:25 | NUR ---
IV IVL DC'D WITH CATH INTACT
[2016-10-11 09:27] VITALS: BP 147/88; PULSE 76; RESP 20; TEMP 98; O2SAT 97
--- NOTE | 2016-10-11 09:27 | NUR ---
DISMISSAL DISMISSAL INSTRUCTIONS WITH RX FOR ZOFRAN AND POTASSIUM. NO FURTHER QUESTIONS AT THIS TIME
== END 2016-10-11 09:27 | disposition home or self-care (01) ==
LOC: ED 05:13
DX: G43.A0 Cyclical vomiting, in migraine, not intractable (principal)
CPT/HCPCS: 36415; 74176; 80053; 81001; 81025; 83690; 84484; 85025; 93005; 96361; 96374; 96375; 99284; J0780; J2060; J2405; J7030